=== PATIENT | female | born 2005 | race Two or more races ===

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

== ENCOUNTER 2024-09-19 19:01 | Outpatient (CLI) | payer MEDICAID, SELFPAY ==
[2024-09-19 19:39] LABS: Coronavirus 19, PCR Not Detected (NotDetected); Human Rhinovirus Not Detected (NotDetected); Influenza A, PCR Not Detected (NotDetected); Influenza B, PCR Not Detected (NotDetected); Respiratory Syncytial Virus Not Detected (NotDetected)
== END 2024-09-19 23:59 | disposition home or self-care (01) ==
LOC: LAB.DROPOF 19:06
PROVIDERS: PCP Nurse Practitioner Family; Visit Provider Nurse Practitioner Family
DX: J02.9 Acute pharyngitis, unspecified (principal)
CPT/HCPCS: 87631

== ENCOUNTER 2024-10-01 13:36 | Outpatient (CLI) | payer MEDICAID, SELFPAY ==
[2024-10-01 18:05] LABS: Coronavirus 19, PCR Not Detected (NotDetected); Human Rhinovirus Not Detected (NotDetected); Influenza A, PCR Not Detected (NotDetected); Influenza B, PCR Not Detected (NotDetected); Respiratory Syncytial Virus Not Detected (NotDetected)
== END 2024-10-01 23:59 | disposition home or self-care (01) ==
LOC: LAB.DROPOF 10-02 12:59
PROVIDERS: PCP Nurse Practitioner; Visit Provider Nurse Practitioner
DX: J06.9 Acute upper respiratory infection, unspecified (principal)
CPT/HCPCS: 87631

== ENCOUNTER 2024-10-09 08:52 | Emergency (ER) | payer MEDICAID, SELFPAY ==
[2024-10-09 08:53] VITALS: BP 124/78; PULSE 68; RESP 17; TEMP 36.9; O2SAT 99; BMI 21.9
--- NOTE | 2024-10-09 08:56 | PC.NURSE ---
Cool, wet wash cloth placed to pt's burn area. Pain level decreased to 4/10.
[2024-10-09 09:01] VITALS: PULSE 81; O2SAT 98
--- NOTE | 2024-10-09 09:15 | PC.NURSE ---
Dr. Wheeler at bedside and placing dressing to pt's arm. Given dressing and skin care instructions. Pt provided with extra dressing supplies.
--- NOTE | 2024-10-09 09:17 | ED_ITS ---
Discharge Plan Disposition Patient Disposition: Home, Self-Care Condition: Good Prescriptions Prescriptions: No Action fluoxetine [Prozac] 20 mg capsule 20 mg PO DAILY Qty: 90 3RF albuterol sulfate 90 mcg/actuation HFA aerosol inhaler 2 puff inhalation Q4-6H PRN (Reason: shortness of breath or wheezing) Qty: 8.5 0RF ondansetron 4 mg tablet,disintegrating 4 mg PO Q8H PRN (Reason: nausea and vomiting) Qty: 30 0RF meloxicam 15 mg tablet 15 mg PO DAILY Qty: 90 3RF omeprazole 20 mg capsule,delayed release(DR/EC) 20 mg PO DAILY Qty: 90 3RF Referrals Follow up/Referrals: En Phillip MD [Primary Care Provider] - See instructions Activity Restrictions/Add. Instructions Additional Instructions/Restrictions: Remove your bandage after 24 hours and wash the area gently with soap and water, do not scrub the area or pop the small remaining blister. Cover the wound with Aquaphor or Vaseline or Neosporin and replace a bandage to keep it covered. When he returned to work, keep the wrist clean and dry by wearing a glove or an other barrier. Treat pain with Tylenol and ibuprofen. To decrease scarring, once the wound heals, keep sunscreen on the area. Please follow up with your primary care provider in 2-3 days. Please return to ED if your symptoms worsen, change in location, change in severity, new symptoms develop or if you become concerned for your health. Clinical Impressions Clinical Impression: Burn Stand Alone Forms Stand Alone Forms: Work/School Release Instructions Patient Instructions: Caring for Minor Villalobos Print Language Print Language: Uzbek Discharge ED Provider: Nery Wheeler General Adult HPI General Chief complaint: Skin/Abscess/Foreign Body Stated complaint: burnt on L wrist Time Seen by Provider: 10/09/24 08:55 Mode of Arrival: Family Vehicle Source of Information: Patient, Parent(s) and Medical Record Limitations: No Limitations Description of Symptoms (Recalled from ER Triage Doc. by RN): Pt presents to ER with concerns for burn to left distal wrist from hot gravy while at work at [employer]. This occurred at 0750. There is redness surrounding a large drained blister approx 2 x2 . Reports the pain is 7/10 on CHAMBER MAGISTRATE. 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 History of Present Illness HPI narrative: Patient is a 19-year-old female presenting with a burn. Patient was working at [employer] this morning when she got a small amount of hot gravy on her left wrist. Patient noted she washed the gravy off immediately. 2 blisters formed and one opened which is why she came to the emergency department for evaluation. Patient has no known medical problems. Patient not taking any medications. Related Data Previous Rx's ?Medication ?Instructions ?Recorded meloxicam 15 mg tablet 15 mg PO DAILY #90 tabs 01/12/24 omeprazole 20 mg capsule,delayed 20 mg PO DAILY #90 caps 01/12/24 release fluoxetine 20 mg capsule (Prozac) 20 mg PO DAILY #90 caps 09/23/24 albuterol sulfate 90 mcg/actuation 2 puff inhalation Q4-6H PRN 10/01/24 aerosol inhaler shortness of breath or wheezing #8.5 grams ondansetron 4 mg disintegrating 4 mg PO Q8H PRN nausea and 10/01/24 tablet vomiting #30 tabs Allergies Allergy/AdvReac Type Severity Reaction Status Date / Time No Known Allergies Allergy Verified 10/09/24 09:37 [facility] Disclaimer: The information contained in this section may have been updated after the patient was seen, as this information can be updated by other users. Medical History (Updated 10/09/24 @ 09:19 by Nery Wheeler MD) TMJ (temporomandibular joint disorder) GERD (gastroesophageal reflux disease) Oropharyngeal candidiasis Aphthous ulcer of mouth Surgical History (Updated 10/09/24 @ 09:17 by Anila Wei RN) Hx of cholecystectomy Social History (Updated 10/09/24 @ 09:19 by Anila Wei RN) Smoking Status: Never smoker alcohol intake: never substance use type: denies use current occupational status: employed and student Travel in the last 8 weeks: None household members: family housing: house marital status: single well-balanced diet: daily or most days Have you lived/traveled outside [place] in past 30 days?: No Contact w/someone who lives/traveled outside US past 30 days?: No Exposure to someone with infectious disease in past 14 days?: No Do you have a fever (greater than 100.4 F or 38 C)?: No Have you tested positive for COVID-19: No Exposed to someone with COVID-19 in past 14 days?: No Do you have a sore throat?: No Do you have a cough?: No Do you have any weakness?: No Are you experiencing any nausea/vomitting?: No Do you have any diarrhea?: No Are you experiencing any unusual bleeding?: No Do you have any muscle aches/pain?: No Do you have any abdominal pain?: No Are you experiencing loss of taste or smell?: No Other Medical History Have you received the Flu Vaccine for this season: No Have you received the Pneumonia Vaccine: No ROS Obtained: Yes All systems reviewed & no additional complaints except as documented Physical Exam General General appearance: alert and in no apparent distress Eye Eye exam: Present EOMI; Absent scleral icterus Respiratory Respiratory exam: Present normal lung sounds bilaterally Cardiovascular Cardiovascular exam: Present regular rate and normal rhythm Abdominal Exam Abdominal exam: Present soft; Absent distention Extremities Exam Extremities exam: Present full ROM and tenderness (Left wrist); Absent edema Neurological Exam Neurological exam: Present alert and oriented X3 Skin Skin exam: Present warm and dry; Absent intact (Subcentimeter fluid-filled blister to left medial wrist with approximately 2 cm open blister with serous fluid) Medical Decision Making Medical Records Medical records reviewed: Yes I reviewed the patient's medical records. Screening: Per USPSTF and CDC recommendations, given the prevalence of disease in our region, it is our hospital?s policy to screen for HIV and viral Hepatitis for all patients aged 18 and over and those with ongoing risk factors. Star Inquiry Pt receiving controlled substance: No Vital Signs: 10/09/24 08:53 10/09/24 09:01 10/09/24 09:30 Temperature 98.4 F 98.2 F Temperature Source Oral Oral Pulse Rate 81 68 Pulse Rate [Right] 68 Respiratory Rate 17 18 Blood Pressure 117/78 Blood Pressure [Right Arm] 124/78 Blood Pressure Mean [Right Arm] 93 Blood Pressure Source Automatic Cuff Blood Pressure Source [Right Arm] Automatic Cuff Blood Pressure Position Sitting 02 Sat by Pulse Oximetry 99 98 Oxygen Delivery Method Room Air Room Air Medical Decision Narrative: In summary, this is a 19-year-old female presenting with a burn. Based on the appearance of the burn, it appears to be a small circumscribed second-degree burn. Patient complains of significant pain in the area. She has no history of diabetes and does not use tobacco products. Patient has no history of being immunocompromise. Imaging not indicated at this time based on the mechanism of injury. Patient's burn was cleaned with sterile saline and the ruptured blister skin flap was removed with sterile scissors. Wound covered with Xeroform, nonstick gauze and the wrist was wrapped with Kerlix. Patient was given instructions for wound care management as well as return precautions and follow- up. Patient in agreement with this plan. Patient stable for discharge. Nery Wheeler MD PGY-3, Emergency Medicine Critical Care Critical Care Time Critical Care Time: No
--- NOTE | 2024-10-09 09:28 | PC.NURSE ---
Dr. Wheeler completed a worker's comp form and this was given to pt to provide to work. Copy in pt's chart.
[2024-10-09 09:30] VITALS: BP 117/78; PULSE 68; RESP 18; TEMP 36.8; O2SAT 98
--- NOTE | 2024-10-09 09:30 | PC.NURSE ---
Wound was dressed by Summer MEDRANO. Work note provided.
== END 2024-10-09 09:31 | disposition home or self-care (01) ==
PROVIDERS: Emergency Provider Student in an Organized Health Care Education/Training Program; PCP Family Medicine
DX: T23.272A Burn of second degree of left wrist, initial encounter (principal); M25.532 Pain in left wrist; X12.XXXA Contact with other hot fluids, initial encounter; Y93.89 Activity, other specified; Y92.511 Restaurant or cafe as the place of occurrence of the external cause
CPT/HCPCS: 99282

== ENCOUNTER 2024-12-21 11:40 | Emergency (ER) | payer MEDICAID, SELFPAY ==
[2024-12-21 11:45] VITALS: BP 114/48; PULSE 95; RESP 16; TEMP 37.3; O2SAT 98; BMI 20.5
[2024-12-21 11:52] LABS: Coronavirus 19, PCR Not Detected (NotDetected); Influenza A, PCR Not Detected (NotDetected); Influenza B, PCR Not Detected (NotDetected)
[2024-12-21] MEDS: ACETAMINOPHEN 500MG TAB 1000 MG PO (12:07)
[2024-12-21] MEDS: ONDANSETRON 4MG ODT 4 MG SL (12:07)
[2024-12-21] MEDS: FAMOTIDINE 20MG TABLET 20 MG PO (12:07)
--- NOTE | 2024-12-21 12:12 | ED_ITS ---
Discharge Plan Disposition Patient Disposition: Home, Self-Care Prescriptions Prescriptions: New ondansetron 4 mg tablet,disintegrating 4 mg PO Q8H PRN (Reason: nausea and vomiting) 4 Days Qty: 12 0RF famotidine [Pepcid] 20 mg tablet 20 mg PO BID Qty: 14 0RF No Action fluoxetine [Prozac] 20 mg capsule 20 mg PO DAILY Qty: 90 3RF Referrals Follow up/Referrals: En Phillip MD [Primary Care Provider] - See instructions Activity Restrictions/Add. Instructions Additional Instructions/Restrictions: You were evaluated in the emergency department today. At this time, we feel you likely have a viral syndrome as a cause of your symptoms. 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 Please also take Tylenol and ibuprofen every 4-6 hours as needed for pain, body aches, fever. Orally hydrate eat a bland diet till your symptoms have resolved. Follow-up with your primary care provider for reassessment. Return to the emergency department for new or worsening symptoms. Clinical Impressions Clinical Impression: Nausea & vomiting, Acute viral syndrome Stand Alone Forms Stand Alone Forms: Work/School Release Instructions Patient Instructions: DI for Diarrhea and Traveler's Diarrhea -- Adult, DI for Viral Syndrome, DI for Nausea -- Adult Print Language Print Language: Citizen Of [place] Discharge ED Provider: Iliana Corea General Adult HPI General Chief complaint: Nausea/Vomiting/Diarrhea Stated complaint: Vomitting, Body Aches Time Seen by Provider: 12/21/24 11:50 Mode of Arrival: Ambulatory Source of Information: Patient Description of Symptoms (Recalled from ER Triage Doc. by RN): PT REPORTS NAUSEA, BODYACHES AND VOMITING THAT STARTED ON MONDAY History of Present Illness HPI narrative: This patient is a 19-year-old female who denies significant past medical history presenting to the emergency department for evaluation of concern for nausea, vomiting, body aches, sore throat, and generally feeling unwell since . She denies any cough, congestion, abdominal pain, changes in bowel movements, urinary symptoms, or other concerns. She does not think she could be . Related Data Previous Rx's ?Medication ?Instructions ?Recorded fluoxetine 20 mg capsule (Prozac) 20 mg PO DAILY #90 caps 09/23/24 famotidine 20 mg tablet (Pepcid) 20 mg PO BID #14 tabs 12/21/24 ondansetron 4 mg disintegrating 4 mg PO Q8H PRN nausea and 12/21/24 tablet vomiting 4 days #12 tabs Allergies Allergy/AdvReac Type Severity Reaction Status Date / Time No Known Allergies Allergy Verified 10/09/24 09:37 [facility] Disclaimer: The information contained in this section may have been updated after the patient was seen, as this information can be updated by other users. Medical History TMJ (temporomandibular joint disorder) GERD (gastroesophageal reflux disease) Oropharyngeal candidiasis Aphthous ulcer of mouth Surgical History Hx of cholecystectomy Social History Smoking Status: Never smoker alcohol intake: never substance use type: denies use current occupational status: employed and student Travel in the last 8 weeks: None household members: family housing: house marital status: single well-balanced diet: daily or most days Have you lived/traveled outside US in past 30 days?: No Contact w/someone who lives/traveled outside US past 30 days?: No Exposure to someone with infectious disease in past 14 days?: No Do you have a fever (greater than 100.4 F or 38 C)?: No Have you tested positive for COVID-19: No Exposed to someone with COVID-19 in past 14 days?: No Do you have a sore throat?: No Do you have a cough?: No Do you have any weakness?: Yes Do you have any diarrhea?: No Are you experiencing any unusual bleeding?: No Do you have any muscle aches/pain?: Yes Do you have any abdominal pain?: No Are you experiencing loss of taste or smell?: No Other Medical History Have you received the Flu Vaccine for this season: No Have you received the Pneumonia Vaccine: No ROS Obtained: Yes All systems reviewed & no additional complaints except as documented Physical Exam General General appearance: alert and in no apparent distress Head Head exam: atraumatic and normocephalic Eye Eye exam: Present normal appearance, PERRL and EOMI ENT ENT exam: Present normal exam, normal oropharynx, mucous membranes moist and normal external ear exam Neck Neck exam: Present normal inspection, full ROM and trachea midline; Absent tenderness Chest Chest inspection: Present normal inspection and symmetric chest wall rise; Absent tenderness Respiratory Respiratory exam: Present normal lung sounds bilaterally; Absent respiratory distress, wheezes, stridor or accessory muscle use Cardiovascular Cardiovascular exam: Present normal rhythm and tachycardia Abdominal Exam Abdominal exam: Present soft; Absent distention, tenderness or guarding Extremities Exam Extremities exam: Present normal inspection, full ROM and normal capillary refill; Absent tenderness or edema Back Exam Back exam: Present normal inspection and full ROM; Absent tenderness Neurological Exam Neurological exam: Present alert, oriented X3, CN II-XII intact and normal gait; Absent motor sensory deficit Psychiatric Psychiatric exam: Present normal affect and normal mood Skin Skin exam: Present warm and dry Medical Decision Making Medical Records Medical records reviewed: Yes I reviewed the patient's medical records. Screening: Per USPSTF and CDC recommendations, given the prevalence of disease in our region, it is our hospital?s policy to screen for HIV and viral Hepatitis for all patients aged 18 and over and those with ongoing risk factors. Star Inquiry Pt receiving controlled substance: No Vital Signs: 12/21/24 11:45 12/21/24 12:39 Temperature 99.1 F Temperature Source Oral Pulse Rate 95 H Pulse Rate [Radial] 95 H Respiratory Rate 16 Blood Pressure 100/57 L Blood Pressure [Right Arm] 114/48 L Blood Pressure Mean [Right Arm] 70 Blood Pressure Source [Right Arm] Automatic Cuff Blood Pressure Position [Right Arm] Sitting 02 Sat by Pulse Oximetry 98 97 Oxygen Delivery Method Room Air Room Air Lab Data Lab results reviewed: Yes I reviewed the patient's lab results. Lab Results 12/21/24 11:46: SARS-CoV-2 (PCR) Not detected, Influenza A Untype (PCR) Not detected, Influenza Type B (PCR) Not detected 12/21/24 12:15: Urine Color Yellow, Urine Appearance Clear, Urine pH 6.0, Ur Specific [place] 1.038 H, Urine Protein 1+ A, Urine Glucose (UA) Negative, Urine Ketones 3+, Urine Blood 1+ A, Urine Nitrate Negative, Urine Bilirubin 1+ A, Urine Urobilinogen 1.0, Ur Leukocyte Esterase Negative, Urine RBC None, Urine WBC Occasional, Ur Squamous Epith Cells 3-5, Urine Bacteria Trace, Urine Mucus Trace, Urine HCG, Qual Negative, Group A Strep Rapid Negative Orders (Tests/Meds): ED MEDICATIONS Discontinued Medications Generic Name Dose Route Start Last Admin Trade Name [place] PRN Reason Stop Dose Admin Acetaminophen 1,000 mg 12/21/24 11:50 12/21/24 12:07 Acetaminophen 500mg Tab PO 12/21/24 11:51 1,000 mg ONCE ONE Administration Famotidine 20 mg 12/21/24 11:50 12/21/24 12:07 Famotidine 20mg Tablet PO 12/21/24 11:51 20 mg ONCE ONE Administration Ibuprofen 800 mg 12/21/24 12:52 Ibuprofen 400 Mg Tablet PO 12/21/24 12:53 ONCE ONE Ondansetron HCl 4 mg 12/21/24 11:50 12/21/24 12:07 Ondansetron 4mg Odt SL 12/21/24 11:51 4 mg ONCE ONE Administration ORDERS Category Date Time Status HIV Combo Stat Lab 12/21/24 11:55 Ordered Hepatitis C Ab Qual. W/ RFX Stat Lab 12/21/24 11:55 Ordered Rapid PCR Covid and Flu A/B Stat Lab 12/21/24 11:46 Completed Strep Scrn Group A (Rapid) Stat Lab 12/21/24 12:15 Completed UA [Urinalysis and Microscopic] Stat Lab 12/21/24 12:15 Completed Urine , HCG Qual. Stat Lab 12/21/24 12:15 Completed Strep Screen Confirmation Stat Micro 12/21/24 12:15 Received Medical Decision Narrative: In summary, this patient is a 19-year-old female presenting to the Emergency Department for evaluation of sore throat, body aches, generally feeling unwell, nausea, and vomiting. Differential diagnoses considered include but are not limited to viral syndrome, gastroenteritis, colitis, strep pharyngitis. Ruling out the most morbid conditions drove assessment. On exam, the patient is well-appearing. She is mildly tachycardic in the setting of nausea and vomiting but cardiopulmonary and abdominal exams are benign. No adventitious lung sounds, no localizable abdominal tenderness to suggest acute surgical intra-abdominal pathology. Based on constellation of symptoms, I feel patient likely has a viral syndrome. Workup included strep swab, COVID swab, urinalysis, urine test. 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 She is given oral Zofran, Pepcid, and Tylenol for symptomatic improvement. On reassessment, the patient is resting comfortably and feeling a lot better. She is able to tolerate oral intake without issue, and abdominal exam remains benign. She is negative for strep, COVID, flu. test is negative. Urinalysis is not overtly concerning for infection. Ultimately at this time, I feel she is appropriate for discharge home with instructions for supportive management of likely viral syndrome. She is given prescriptions for Zofran and Pepcid as well as strict return precautions. She is discharged after all questions were answered Critical Care Critical Care Time Critical Care Time: No
[2024-12-21 12:30] LABS: Microscopic, Urine URINE MICROSCOPIC (MICROSCOPIC)
[2024-12-21 12:32] LABS: Appearance,Urine CLEAR (Clear); Blood, Urine 1+ (Negative); Color,Urine YELLOW (Yellow); Glucose,Urine (UA) Negative (Negative); Ketones,Urine 3+ (Negative); Leukocyte Esterase,Urine Negative (Negative); Nitrate,Urine Negative (Negative); Protein,Urine 1+ (Negative)
[2024-12-21 12:34] LABS: Urine Pregnancy, HCG Qual. Negative (Negative)
[2024-12-21 12:38] LABS: Bacteria,Urine Trace /lpf; Mucus,Urine Trace /lpf; Specific Gravity, Urine 1.038 (1.005-1.030); WBC,Urine Occasional #/hpf (0-3)
[2024-12-21 12:39] VITALS: BP 100/57; PULSE 95; O2SAT 97
[2024-12-21 12:43] LABS: Bilirubin,Urine 1+ (Negative)
[2024-12-21 12:49] LABS: Strep Scrn Group A (Rapid) Negative (Negative)
[2024-12-21] MEDS: IBUPROFEN 400 MG TABLET 800 MG PO (13:43)
[2024-12-21 13:50] VITALS: BP 110/70; PULSE 86; RESP 16; TEMP 36.8; O2SAT 98
== END 2024-12-21 13:50 | disposition home or self-care (01) ==
PROVIDERS: Emergency Provider Emergency Medicine; PCP Family Medicine
DX: R11.2 Nausea with vomiting, unspecified (principal); B34.9 Viral infection, unspecified
CPT/HCPCS: 99283; 81001; 81025; 87430; 87636; Q0162

== ENCOUNTER 2024-12-22 00:39 | Emergency (ER) | payer MEDICAID, SELFPAY ==
--- NOTE | 2024-12-22 00:43 | ED_ITS ---
Discharge Plan Disposition Patient Disposition: Home, Self-Care Prescriptions Prescriptions: No Action fluoxetine [Prozac] 20 mg capsule 20 mg PO DAILY Qty: 90 3RF ondansetron 4 mg tablet,disintegrating 4 mg PO Q8H PRN (Reason: nausea and vomiting) 4 Days Qty: 12 0RF famotidine [Pepcid] 20 mg tablet 20 mg PO BID Qty: 14 0RF Referrals Follow up/Referrals: nE Phillip MD [Primary Care Provider] - See instructions Activity Restrictions/Add. Instructions Additional Instructions/Restrictions: Please follow-up with your primary care provider. Please return to the emergency department if you develop any new or worsening symptoms or become concerned for your health. Clinical Impressions Clinical Impression: Akathisia Print Language Print Language: [place] Discharge ED Provider: Js Noel General Adult HPI General Chief complaint: Weakness Stated complaint: weakness, vomiting Time Seen by Provider: 12/22/24 00:43 History of Present Illness HPI narrative: 19-year-old female with history of cholecystectomy and GERD presents for nausea and vomiting and twitching. Was seen in our ER earlier today was discharged with Phenergan. She took 50 mg of Phenergan and then started shaking and twitching. She has taken Phenergan before and has never had this issue. She reports she is continuing to vomit as well. Related Data Previous Rx's ?Medication ?Instructions ?Recorded fluoxetine 20 mg capsule (Prozac) 20 mg PO DAILY #90 caps 09/23/24 famotidine 20 mg tablet (Pepcid) 20 mg PO BID #14 tabs 12/21/24 ondansetron 4 mg disintegrating 4 mg PO Q8H PRN nausea and 12/21/24 tablet vomiting 4 days #12 tabs Allergies Allergy/AdvReac Type Severity Reaction Status Date / Time No Known Allergies Allergy Verified 10/09/24 09:37 [facility] Disclaimer: The information contained in this section may have been updated after the patient was seen, as this information can be updated by other users. Medical History TMJ (temporomandibular joint disorder) GERD (gastroesophageal reflux disease) Oropharyngeal candidiasis Aphthous ulcer of mouth Surgical History Hx of cholecystectomy Social History Smoking Status: Never smoker alcohol intake: never substance use type: denies use current occupational status: employed and student Travel in the last 8 weeks: None household members: family housing: house marital status: single well-balanced diet: daily or most days Have you lived/traveled outside US in past 30 days?: No Contact w/someone who lives/traveled outside US past 30 days?: No Exposure to someone with infectious disease in past 14 days?: No Do you have a fever (greater than 100.4 F or 38 C)?: No Have you tested positive for COVID-19: No Exposed to someone with COVID-19 in past 14 days?: No Do you have a sore throat?: No Do you have a cough?: No Do you have any weakness?: Yes Do you have any diarrhea?: No Are you experiencing any unusual bleeding?: No Do you have any muscle aches/pain?: No Do you have any abdominal pain?: No Are you experiencing loss of taste or smell?: No Other Medical History Have you received the Flu Vaccine for this season: No Have you received the Pneumonia Vaccine: No ROS Obtained: Yes All systems reviewed & no additional complaints except as documented Physical Exam General General appearance: alert and anxious Head Head exam: atraumatic and normocephalic Eye Eye exam: Present normal appearance, PERRL and EOMI ENT ENT exam: Present normal oropharynx and normal external ear exam Neck Neck exam: Present normal inspection and full ROM Chest Chest inspection: Present normal inspection and symmetric chest wall rise; Absent tenderness Respiratory Respiratory exam: Present normal lung sounds bilaterally; Absent respiratory distress Cardiovascular Cardiovascular exam: Present regular rate and normal rhythm Abdominal Exam Abdominal exam: Present soft; Absent distention, tenderness or guarding Extremities Exam Extremities exam: Present normal inspection; Absent edema or joint swelling Back Exam Back exam: Present normal inspection; Absent tenderness Neurological Exam Neurological exam: Present alert and oriented X3; Absent motor sensory deficit Psychiatric Psychiatric exam: Present normal affect, normal mood and other (Occasional twitching of the limbs) Skin Skin exam: Present warm, dry and normal color Lymphatic Lymphatic Findings: no adenopathy Medical Decision Making Medical Records Medical records reviewed: Yes I reviewed the patient's medical records. Screening: Per USPSTF and CDC recommendations, given the prevalence of disease in our region, it is our hospital?s policy to screen for HIV and viral Hepatitis for all patients aged 18 and over and those with ongoing risk factors. Star Inquiry Pt receiving controlled substance: No Star was queried for this patient: No Vital Signs: 12/22/24 00:51 12/22/24 03:09 Temperature 98.9 F 98.9 F Temperature Source Oral Pulse Rate 80 Pulse Rate [Radial] 91 H Respiratory Rate 18 18 Blood Pressure 120/74 Blood Pressure [Right Arm] 108/85 L Blood Pressure Mean [Right Arm] 92 Blood Pressure Position [Right Arm] Sitting 02 Sat by Pulse Oximetry 100 Oxygen Delivery Method Room Air Room Air Lab Data Lab results reviewed: Yes I reviewed the patient's lab results. Lab Results 12/22/24 00:55: WBC 15.0 H, RBC 4.20, Hgb 11.8 L, Hct 35.6 L, MCV 84.8, MCH 28.1, MCHC 33.1, RDW 13.4, Plt Count 267, MPV 9.9, Neut % (Auto) 75.6, Lymph % (Auto) 13.4, [place] % (Auto) 9.9 H, Eos % (Auto) 0.5, Baso % (Auto) 0.2, Neut # (Auto) 11.3 H, Lymph # (Auto) 2.0, [place] # (Auto) 1.5 H, Eos # (Auto) 0.1, Baso # (Auto) 0.0, Total Counted 100, Neutrophils % (Manual) 74, Lymphocytes % (Manual) 15, Monocytes % (Manual) 11 H, Platelet Estimate Normal, RBC Morphology Normal, Sodium 137, Potassium 3.1 L, Chloride 98, Carbon Dioxide 27, Anion Gap 15.1 H, B UN 6 L, Creatinine 0.60, Estimated Creat Clear 129, Estimated GFR 127, Est GFR ( Amer) 154, Glucose 128 H, Calcium 8.7, Magnesium 2.1, Total Bilirubin 0.6, AST 67 H, ALT 50, Alkaline Phosphatase 92, Total Protein 7.9, Albumin 4.2, Globulin 3.7 H, Albumin/Globulin Ratio 1.1, Lipase 47 12/22/24 00:55 12/22/24 00:55 Orders (Tests/Meds): ED MEDICATIONS Discontinued Medications Generic Name Dose Route Start Last Admin Trade Name Freq PRN Reason Stop Dose Admin Benztropine Mesylate 2 mg 12/22/24 00:52 12/22/24 01:10 Benztropine 2mg/2ml Vial IV 12/22/24 00:53 2 mg ONCE ONE Administration Lactated Ringer's 1,000 mls @ 999 mls/hr 12/22/24 01:30 12/22/24 01:44 Lactated Ringer's 1000 Ml Bag IV 12/22/24 02:30 999 mls/hr .Q1H1M LLUVIA Administration Potassium Chloride 40 meq 12/22/24 01:57 12/22/24 02:10 Potassium Chloride 20meq Tab PO 12/22/24 01:58 40 meq ONCE ONE Administration ORDERS Category Date Time Status CBC w/Auto Diff [Complete Blood Count Auto Diff] Stat Lab 12/22/24 00:55 Completed CMP [Comprehensive Metabolic Panel] Stat Lab 12/22/24 00:55 Completed Lipase Stat Lab 12/22/24 00:55 Completed MAG [Magnesium] Stat Lab 12/22/24 00:55 Completed Medical Decision Narrative: 39-year-old female with history of cholecystectomy, GERD presents for twitching after taking 50 mg of Phenergan. History was obtained via interactive discussion with patient, family, chart review. On arrival, patient is [afebrile, hemodynamically stable, satting appropriately, alert, oriented x4, GCS 15], moving all extremities spontaneously. Full physical exam performed and significant for occasional twitching of the limbs noted, dry mucous membranes. Differential includes but is not limited to dehydration, electrolyte derangement, akathisia/extraparamydal side effects from Phenergan. Patient was given 1 L IV fluid bolus for symptomatic management and correction of underlying abnormalities. Workup initiated including CBC CMP lipase magnesium. On re-evaluation, patient [remains afebrile, HD stable.] Now sleeping comfortably Laboratory workup independently interpreted by me and significant for mild hypokalemia with potassium 3.1, repleted orally.. CT was considered, but deemed unnecessary due to prior cholecystectomy, no focal right lower quadrant pain appendicitis, no concern for obstruction, etc. Given patient history, exam and workup, patient's presentation most likely represents extrapyramidal side effect of the Phenergan as well as mild hypokalemia from nausea and vomiting. No evidence of pancreatitis or other acute pathology. Patient discharged in stable condition with return precautions. Procedures Risk/Benefits of Procedure(s) Were Explained: Yes Critical Care Critical Care Time Critical Care Time: No
[2024-12-22 00:51] VITALS: BP 108/85; PULSE 91; RESP 18; TEMP 37.2; O2SAT 100; BMI 20.5
[2024-12-22] MEDS: BENZTROPINE 2MG/2ML VIAL 2 MG IV (01:10)
--- NOTE | 2024-12-22 01:18 | PC.NURSE ---
pt medicated per MAR and given warm blankets at this time
[2024-12-22] MEDS: LACTATED RINGERS 1000ML 1,000 ML 999 ML IV (01:44)
[2024-12-22 01:48] LABS: Basophils % 0.2 % (0.1-2.0); Eosinophils # 0.1 K/mm3 (0.0-0.4); Eosinophils % 0.5 % (0.1-12.0); Hematocrit 35.6 % (37.0-47.0); Hemoglobin 11.8 g/dL (12.2-16.2); Lymphocytes % 13.4 % (10-50); Mean Corpuscular HGB Conc 33.1 g/dL (31.8-35.4); Mean Corpuscular Hemoglobin 28.1 pg (27.0-31.2); Mean Corpuscular Volume 84.8 fl (81-99); Mean Platelet Volume 9.9 fl (7.4-10.4); Monocytes # 1.5 K/mm3 (0.1-1.0); Monocytes % 9.9 % (1.7-9.3); Neutrophils # 11.3 K/mm3 (1.8-7.8); Neutrophils % 75.6 % (37.0-80.0); Nucleated Red Blood Cells # 0 10^3/uL; Nucleated Red Blood Cells % 0 %; Platelet Count 267 K/mm3 (142-424); Red Cell Distribution Width 13.4 % (11.5-17.5); Red Cell Distribution Width-SD 41.7 fL
[2024-12-22 01:50] LABS: MANUAL DIFFERENTIAL MANUAL DIFFERENTIAL (MANUAL DIFF)
[2024-12-22 01:51] LABS: Alanine Aminotransferase 50 U/L (12-78); Albumin Level 4.2 g/dl (3.5-5.0); Anion Gap 15.1 mEq/L (5-15); Aspartate Amino Transferase 67 U/L (14-36); Bilirubin,Total 0.6 mg/dl (0.2-1.3); Blood Urea Nitrogen 6 mg/dl (7-17); Calcium 8.7 mg/dl (8.4-10.2); Carbon Dioxide 27 mmol/L (22.0-30.0); Chloride 98 mmol/L (98-107); Creatinine Clearance Estimated 129 mL/min (50-200); Estimated Glomerular Filt Rate 127 ml/min (>60); GFR (African American) 154 ML/MIN (>60); Glucose 128 mg/dl (74-100); Lipase 47 U/L (23-300); Magnesium 2.1 mg/dl (1.6-2.3); Potassium 3.1 mmoL/L (3.5-5.1); Sodium 137 mmol/L (136-145); Total Protein,Serum 7.9 g/dl (6.3-8.2)
[2024-12-22 01:52] LABS: Albumin/Globulin Ratio 1.1 (1.1-1.8); Alkaline Phosphatase 92 U/L (38-126); Globulin 3.7 g/dL (1.3-3.2)
[2024-12-22] MEDS: POTASSIUM CHLORIDE 20MEQ TAB 40 MEQ PO (02:10)
[2024-12-22 02:22] LABS: Lymphocytes % 15 % (10-50); Monocytes % 11 % (2-9); Neutrophils % 74 % (42-76); Platelet Estimate Normal; RBC Morphology Normal; Total Cells Counted 100
[2024-12-22 03:09] VITALS: BP 120/74; PULSE 80; RESP 18; TEMP 37.2; O2SAT 99
== END 2024-12-22 03:10 | disposition home or self-care (01) ==
LOC: ER 00:46
PROVIDERS: Emergency Provider Emergency Medicine; PCP Family Medicine
DX: G25.71 Drug induced akathisia (principal); R11.2 Nausea with vomiting, unspecified; E87.6 Hypokalemia
CPT/HCPCS: 80053; 83690; 83735; 85007; 85025; 85027; 96361; 96374; 99284; J7120

== ENCOUNTER 2024-12-26 15:45 | Outpatient (CLI) | payer MEDICAID, SELFPAY ==
[2024-12-26 17:54] LABS: Coronavirus 19, PCR Not Detected (NotDetected); Human Rhinovirus Not Detected (NotDetected); Influenza A, PCR Not Detected (NotDetected); Influenza B, PCR Not Detected (NotDetected); Respiratory Syncytial Virus Not Detected (NotDetected)
[2024-12-26 18:06] LABS: Monoscreen (Rapid) Negative (Negative)
[2024-12-26 18:22] LABS: Basophils % 0.3 % (0.1-2.0); Eosinophils # 0.3 K/mm3 (0.0-0.4); Eosinophils % 2.6 % (0.1-12.0); Hematocrit 35.8 % (37.0-47.0); Hemoglobin 11.3 g/dL (12.2-16.2); Lymphocytes # 2.5 K/mm3 (0.7-4.5); Lymphocytes % 25.8 % (10-50); Mean Corpuscular HGB Conc 31.6 g/dL (31.8-35.4); Mean Corpuscular Hemoglobin 27.3 pg (27.0-31.2); Mean Corpuscular Volume 86.5 fl (81-99); Mean Platelet Volume 9.7 fl (7.4-10.4); Monocytes % 9.8 % (1.7-9.3); Neutrophils # 5.9 K/mm3 (1.8-7.8); Neutrophils % 60.9 % (37.0-80.0); Nucleated Red Blood Cells # 0 10^3/uL; Nucleated Red Blood Cells % 0 %; Platelet Count 422 K/mm3 (142-424); Red Blood Count 4.14 M/mm3 (4.20-5.40); Red Cell Distribution Width 13.1 % (11.5-17.5); White Blood Count 9.7 K/mm3 (4.5-13.0)
[2024-12-26 19:46] LABS: Albumin Level 3.8 g/dl (3.5-5.0); Chloride 100 mmol/L (98-107); Potassium 3.7 mmoL/L (3.5-5.1); Sodium 139 mmol/L (136-145)
[2024-12-26 19:49] LABS: Alanine Aminotransferase 30 U/L (12-78); Albumin/Globulin Ratio 1.2 (1.1-1.8); Alkaline Phosphatase 107 U/L (38-126); Anion Gap 12.7 mEq/L (5-15); Aspartate Amino Transferase 21 U/L (14-36); Bilirubin,Total 0.2 mg/dl (0.2-1.3); Blood Urea Nitrogen 3 mg/dl (7-17); Calcium 8.8 mg/dl (8.4-10.2); Carbon Dioxide 30 mmol/L (22.0-30.0); Estimated Glomerular Filt Rate 127 ml/min (>60); GFR (African American) 154 ML/MIN (>60); Globulin 3.2 g/dL (1.3-3.2); Glucose 96 mg/dl (74-100)
== END 2024-12-26 23:59 | disposition home or self-care (01) ==
LOC: LAB.DROPOF 12-27 12:22
PROVIDERS: PCP Nurse Practitioner; Visit Provider Nurse Practitioner
DX: E87.6 Hypokalemia (principal); J06.9 Acute upper respiratory infection, unspecified
CPT/HCPCS: 80053; 85025; 86318; 87631

== ENCOUNTER 2025-02-14 08:51 | Outpatient (CLI) | payer MEDICAID, SELFPAY | END 2025-02-14 23:59 | disposition home or self-care (01) | LOC: LAB.DROPOF 02-17 08:51 | PROVIDERS: PCP Nurse Practitioner Family; Visit Provider Nurse Practitioner Family | DX: R10.9 Unspecified abdominal pain (principal) | CPT/HCPCS: 87086 ==

== ENCOUNTER 2025-03-24 11:10 | Outpatient (CLI) | payer MEDICAID, SELFPAY ==
[2025-03-24 14:09] LABS: Microscopic, Urine URINE MICROSCOPIC (MICROSCOPIC)
[2025-03-24 14:13] LABS: Bilirubin,Urine Negative (Negative); Color,Urine ORANGE (Yellow); Glucose,Urine (UA) Negative (Negative); Ketones,Urine Negative (Negative); Leukocyte Esterase,Urine Negative (Negative); PH,Urine 7.0 (5.0-8.5); Protein,Urine TRACE (Negative); Specific Gravity, Urine 1.025 (1.005-1.030); Urobilinogen,Urine 0.2 EU/dl (0.2)
[2025-03-24 14:28] LABS: Bacteria,Urine Trace /lpf; RBC,Urine TNTC #/hpf (0-3); Squamous Epithelial Cell,Urine Occasional #/hpf (0-5); WBC,Urine Occasional #/hpf (0-3)
[2025-03-24 14:41] LABS: Hematocrit 35.1 % (37.0-47.0); Hemoglobin 11.1 g/dL (12.2-16.2); Immature Granulocytes % 0.1 %; Mean Corpuscular HGB Conc 31.6 g/dL (31.8-35.4); Mean Corpuscular Hemoglobin 26.8 pg (27.0-31.2); Mean Corpuscular Volume 84.8 fl (81-99); Nucleated Red Blood Cells % 0 %; Platelet Count 324 K/mm3 (142-424); Red Blood Count 4.14 M/mm3 (4.20-5.40); Red Cell Distribution Width-SD 42.8 fL; White Blood Count 7.3 K/mm3 (4.5-13.0)
[2025-03-24 15:20] LABS: Alanine Aminotransferase 10 U/L (12-78); Albumin Level 4.1 g/dl (3.5-5.0); Albumin/Globulin Ratio 1.6 (1.1-1.8); Alkaline Phosphatase 73 U/L (38-126); Anion Gap 14.9 mEq/L (5-15); Aspartate Amino Transferase 20 U/L (14-36); Bilirubin,Total 0.5 mg/dl (0.2-1.3); Blood Urea Nitrogen 8 mg/dl (7-17); Calcium 8.9 mg/dl (8.4-10.2); Carbon Dioxide 25 mmol/L (22.0-30.0); Chloride 101 mmol/L (98-107); Creatinine,Serum 0.40 mg/dl (0.52-1.04); Estimated Glomerular Filt Rate 203 ml/min (>60); GFR (African American) 246 ML/MIN (>60); Globulin 2.6 g/dL (1.3-3.2); Glucose 86 mg/dl (74-100); Potassium 3.9 mmoL/L (3.5-5.1); Sodium 137 mmol/L (136-145); Total Protein,Serum 6.7 g/dl (6.3-8.2)
== END 2025-03-24 23:59 | disposition home or self-care (01) ==
LOC: LAB.DROPOF 03-25 10:36
PROVIDERS: PCP Nurse Practitioner; Visit Provider Nurse Practitioner
DX: R11.0 Nausea (principal); R10.9 Unspecified abdominal pain
CPT/HCPCS: 80053; 81001; 85025

== ENCOUNTER 2025-03-25 10:47 | Emergency (ER) | payer MEDICAID, SELFPAY ==
[2025-03-25 10:59] VITALS: BP 115/77; PULSE 72; RESP 16; TEMP 36.6; O2SAT 100; BMI 21.6
[2025-03-25 10:59] LABS: Microscopic, Urine URINE MICROSCOPIC (MICROSCOPIC)
[2025-03-25 11:04] LABS: Bilirubin,Urine Negative (Negative); Color,Urine YELLOW (Yellow); Glucose,Urine (UA) Negative (Negative); Ketones,Urine Negative (Negative); Leukocyte Esterase,Urine Negative (Negative); PH,Urine 6.0 (5.0-8.5); Protein,Urine Negative (Negative); Specific Gravity, Urine 1.020 (1.005-1.030); Urobilinogen,Urine 0.2 EU/dl (0.2)
[2025-03-25 11:07] LABS: Urine Pregnancy, HCG Qual. Negative (Negative)
[2025-03-25 11:17] LABS: Bacteria,Urine Trace /lpf; Mucus,Urine Trace /lpf; WBC,Urine Occasional #/hpf (0-3)
--- NOTE | 2025-03-25 11:17 | HMH.EDGENADL ---
Discharge Plan Disposition Patient Disposition: Home, Self-Care Condition: Good Prescriptions Prescriptions: No Action fluoxetine [Prozac] 20 mg capsule 20 mg PO DAILY Qty: 90 3RF Daily Probiotic (10 Strains) 4 billion cell capsule 1 cap PO DAILY Qty: 90 3RF ondansetron 4 mg tablet,disintegrating 4 mg PO Q8H PRN (Reason: nausea and vomiting) 4 Days Qty: 12 0RF ascorbic acid (vitamin C) 500 mg tablet 500 mg PO DAILY Qty: 30 0RF Referrals Follow up/Referrals: En Phillip MD [Primary Care Provider, Family Practice] - See instructions Activity Restrictions/Add. Instructions Additional Instructions/Restrictions: Please follow-up with your family doctor and women's health provider, please return to the emergency department any worsening signs or symptoms. Clinical Impressions Clinical Impression: Hot flashes, Fatigue Instructions Patient Instructions: DI for Fatigue Print Language Print Language: Korean Discharge ED Provider: Stacey Servin General Adult HPI General Chief complaint: Weakness Stated complaint: light headed and hot flashes,nausea Time Seen by Provider: 03/25/25 10:50 Mode of Arrival: Ambulatory Source of Information: Patient Description of Symptoms (Recalled from ER Triage Doc. by RN): Pt states starting this past weekend she began having hot flashes, weakness, and nausea. Pt currently denies any pain or recent fever. Pt was seen at PCP and given no answer to why she is feeling bad. History of Present Illness HPI narrative: 19-year-old female presents emergency department with nausea, hot flashes , generalized weakness/fatigue, patient states this has been intermittent for quite some time, worse over the last 2 days, patient saw her outpatient family physician yesterday, had basic laboratory studies, urine, and other test performed, all of which were negative. Denies any fever or chills, chest pain shortness of breath, no vomiting no abdominal pain, no constipation no diarrhea, no urinary symptomatology, no vaginal type symptomatology, no vaginal discharge no vaginal irritation, currently having some vaginal bleeding as patient is on her menstrual cycle, menstrual cycles quite regular, patient denies any alcohol tobacco or drug use, initial triage vitals are unremarkable. Patient has no other real relevant past medical history takes no medications daily at home. Onset (ago): day(s) Related Data Previous Rx's ?Medication ?Instructions ?Recorded fluoxetine 20 mg capsule (Prozac) 20 mg PO DAILY #90 caps 09/23/24 Lactobac 51-Bifidobac 1 cap PO DAILY #90 caps 01/15/25 3-L.lactis-S.thermophilus 4 billion cell capsule (Daily Probiotic (10 Strains)) ondansetron 4 mg disintegrating 4 mg PO Q8H PRN nausea and 02/14/25 tablet vomiting 4 days #12 tabs ascorbic acid (vitamin C) 500 mg 500 mg PO DAILY #30 tabs 02/17/25 tablet Allergies Allergy/AdvReac Type Severity Reaction Status Date / Time No Known Allergies Allergy Verified 03/24/25 10:38 [facility] Disclaimer: The information contained in this section may have been updated after the patient was seen, as this information can be updated by other users. Medical History TMJ (temporomandibular joint disorder) GERD (gastroesophageal reflux disease) Oropharyngeal candidiasis Aphthous ulcer of mouth Surgical History Hx of cholecystectomy Social History Smoking Status: Never smoker alcohol intake: never substance use type: denies use current occupational status: employed and student Travel in the last 8 weeks?: None household members: family housing: house marital status: single well-balanced diet: daily or most days Have you lived/traveled outside US in past 30 days?: No Contact w/someone who lives/traveled outside US past 30 days?: No Exposure to someone with infectious disease in past 14 days?: No Do you have a fever (greater than 100.4 F or 38 C)?: No Have you tested positive for COVID-19?: No Exposed to someone with COVID-19 in past 14 days?: No Do you have a sore throat?: No Do you have a cough?: No Do you have any weakness?: No Do you have any diarrhea?: No Are you experiencing any unusual bleeding?: No Do you have any muscle aches/pain?: No Do you have any abdominal pain?: No Are you experiencing loss of taste or smell?: No Other Medical History Have you received the Flu Vaccine for this season: No Have you received the Pneumonia Vaccine: No ROS Obtained: Yes All systems reviewed & no additional complaints except as documented Physical Exam General General appearance: alert and in no apparent distress Head Head exam: atraumatic and normocephalic Eye Eye exam: Present PERRL and EOMI ENT ENT exam: Present mucous membranes moist Neck Neck exam: Present normal inspection Chest Chest inspection: Present normal inspection and symmetric chest wall rise Respiratory Respiratory exam: Present normal lung sounds bilaterally; Absent respiratory distress Cardiovascular Cardiovascular exam: Present regular rate and normal rhythm Abdominal Exam Abdominal exam: Present soft; Absent tenderness Extremities Exam Extremities exam: Present normal inspection Neurological Exam Neurological exam: Present alert and oriented X3 Psychiatric Psychiatric exam: Present normal affect Skin Skin exam: Present warm and dry Medical Decision Making Medical Records Medical records reviewed: Yes I reviewed the patient's medical records. Screening: Per USPSTF and CDC recommendations, given the prevalence of disease in our region, it is our hospital?s policy to screen for HIV and viral Hepatitis for all patients aged 18 and over and those with ongoing risk factors. Star Inquiry Pt receiving controlled substance: No Star was queried for this patient: No Vital Signs: 03/25/25 10:59 03/25/25 11:29 03/25/25 12:21 Temperature 98 F 97.4 F L Temperature Source Oral Oral Pulse Rate 70 73 Pulse Rate [Left] 72 Respiratory Rate 16 16 Blood Pressure 106/65 L 105/69 L Blood Pressure [Left Arm] 115/77 Blood Pressure Mean 83 Blood Pressure Mean [Left Arm] 89 Blood Pressure Source Automatic Cuff Blood Pressure Source [Left Arm] Automatic Cuff Blood Pressure Position Sitting 02 Sat by Pulse Oximetry 100 99 Oxygen Delivery Method Room Air Room Air Lab Data Lab results reviewed: Yes I reviewed the patient's lab results. Lab Results 03/25/25 10:52: Urine Color Yellow, Urine Appearance Clear, Urine pH 6.0, Ur Specific [place] 1.020, Urine Protein Negative, Urine Glucose (UA) Negative, Urine Ketones Negative, Urine Blood 3+ A, Urine Nitrate Negative, Urine Bilirubin Negative, Urine Urobilinogen 0.2, Ur Leukocyte Esterase Negative, Urine RBC 10-20, Urine WBC Occasional, Ur Squamous Epith Cells 5-10, Urine Bacteria Trace, Urine Mucus Trace, Urine HCG, Qual Negative 03/25/25 11:28: WBC 5.9, RBC 4.16 L, Hgb 11.3 L, Hct 34.9 L, MCV 83.9, MCH 27.2, MCHC 32.4, RDW 14.0, Plt Count 259, MPV 10.7 H, Neut % (Auto) 46.8, Lymph % (Auto) 37.9, [place] % (Auto) 7.1, Eos % (Auto) 7.5, Baso % (Auto) 0.5, Neut # (Auto) 2.8, Lymph # (Auto) 2.2, [place] # (Auto) 0.4, Eos # (Auto) 0.4, Baso # (Auto) 0.0, Sodium 138, Potassium 4.0, Chloride 101, Carbon Dioxide 27, Anion Gap 14.0, BUN 8, Creatinine 0.50 L D, Estimated Creat Clear 167, Estimated GFR 157, Est GFR ( Amer) 190 D, Glucose 87, Calcium 9.2, Magnesium 1.7, Total Bilirubin 0.5, AST 23, ALT 11 L, Alkaline Phosphatase 68, Total Protein 7.6, Albumin 4.3, Globulin 3.3 H, Albumin/Globulin Ratio 1.3, TSH 1.72, Thyroxine (T4) 9.1 03/25/25 11:28 03/25/25 11:28 Orders (Tests/Meds): ED MEDICATIONS Discontinued Medications Generic Name Dose Route Start Last Admin Trade Name Freq PRN Reason Stop Dose Admin Ondansetron HCl 4 mg 03/25/25 11:17 03/25/25 11:32 Ondansetron 4mg/2ml Vial IV 03/25/25 11:18 4 mg ONCE ONE Administration ORDERS Category Date Time Status Complete Blood Count Auto Diff Stat Lab 03/25/25 11:28 Completed Comprehensive Metabolic Panel Stat Lab 03/25/25 11:28 Completed MAG [Magnesium] Stat Lab 03/25/25 11:28 Completed T4 (Thyroxine) Stat Lab 03/25/25 11:28 Completed TSH [Thyroid Stimulating Hormone] Stat Lab 03/25/25 11:28 Completed UA [Urinalysis and Microscopic] Stat Lab 03/25/25 10:52 Completed Urine , HCG Qual. Stat Lab 03/25/25 10:52 Completed Medical Decision Narrative: 19-year-old female presents emergency department with generalized weakness fatigue nausea and hot flashes for several days, differential diagnose include but not limited to premenstrual dysphoric syndrome, primary dysmenorrhea, extralight disturbance, cardiac arrhythmia, physiologic , anxiety reaction, thyroid disorder among others. I discussed this patient's case with the attending physician Obtain basic laboratory studies, EKG, magnesium level, TSH, reflex T4, UA, hCG qualitative, will give 4 mg IV Zofran for nausea. Urine hCG is negative. 3+ hematuria as noted on urinalysis, negative leukocyte esterase, negative nitrites, 10-20 RBCs, occasional WBCs, 5-10 squamous epithelial cells trace urine bacteria. CBC is notable for hemoglobin of 11.3, hematocrit 34.9, otherwise unremarkable CMP is gross unremarkable TSH and T4 are negative Discussed all results with the patient and with the bedside patient family agree with the current plan/discharge plan, will need to follow-up with EMPLOYEE WELFARE MANAGER/women's health provider, as this most likely is premenstrual syndrome versus dysmenorrhea, could benefit from hormone laboratory studies, patient was given strict ED return precautions, patient has antiemetics at home, patient is otherwise remained hemodynamically stable without her time the emerged part, has no other acute signs or symptoms. Clear to be discharged home to self-care. Critical Care Critical Care Time Critical Care Time: No
[2025-03-25 11:29] VITALS: BP 106/65; PULSE 70; O2SAT 99
[2025-03-25] MEDS: ONDANSETRON 4MG/2ML VIAL 4 MG IV (11:32)
--- NOTE | 2025-03-25 11:32 | ECG_ITS ---
APPROVED REPORT Exam: Resting ECG HR:70 bpm ECG Measurements Heart Rate 70 AXES FL 176 P 75 QRSd 92 QRS 71 QT 374 T 44 QTc 395 Conclusion Normal sinus rhythm without acute ST or T wave changes concerning for ischemia Electronically signed by : Stacey Servin, 03/26/2025 07:10:31
[2025-03-25 11:36] LABS: Hematocrit 34.9 % (37.0-47.0); Hemoglobin 11.3 g/dL (12.2-16.2); Immature Granulocytes % 0.2 %; Mean Corpuscular HGB Conc 32.4 g/dL (31.8-35.4); Mean Corpuscular Hemoglobin 27.2 pg (27.0-31.2); Mean Corpuscular Volume 83.9 fl (81-99); Nucleated Red Blood Cells % 0 %; Platelet Count 259 K/mm3 (142-424); Red Blood Count 4.16 M/mm3 (4.20-5.40); Red Cell Distribution Width-SD 42.8 fL; White Blood Count 5.9 K/mm3 (4.5-13.0)
[2025-03-25 11:43] LABS: Alanine Aminotransferase 11 U/L (12-78); Albumin Level 4.3 g/dl (3.5-5.0); Albumin/Globulin Ratio 1.3 (1.1-1.8); Alkaline Phosphatase 68 U/L (38-126); Anion Gap 14.0 mEq/L (5-15); Aspartate Amino Transferase 23 U/L (14-36); Bilirubin,Total 0.5 mg/dl (0.2-1.3); Blood Urea Nitrogen 8 mg/dl (7-17); Calcium 9.2 mg/dl (8.4-10.2); Carbon Dioxide 27 mmol/L (22.0-30.0); Chloride 101 mmol/L (98-107); Creatinine Clearance Estimated 167 mL/min (50-200); Creatinine,Serum 0.50 mg/dl (0.52-1.04); Estimated Glomerular Filt Rate 157 ml/min (>60); GFR (African American) 190 ML/MIN (>60); Globulin 3.3 g/dL (1.3-3.2); Glucose 87 mg/dl (74-100); Potassium 4.0 mmoL/L (3.5-5.1); Sodium 138 mmol/L (136-145); Total Protein,Serum 7.6 g/dl (6.3-8.2)
[2025-03-25 11:58] LABS: Magnesium 1.7 mg/dl (1.6-2.3)
[2025-03-25 12:01] LABS: T4 (Thyroxine) 9.1 ug/dl (5.53-11.0)
[2025-03-25 12:15] LABS: Thyroid Stimulating Hormone 1.72 uIU/mL (0.465-4.68)
[2025-03-25 12:21] VITALS: BP 105/69; PULSE 73; RESP 16; TEMP 36.3; O2SAT 100
== END 2025-03-25 12:25 | disposition home or self-care (01) ==
PROVIDERS: Physician Assistant; Emergency Provider Student in an Organized Health Care Education/Training Program; PCP Family Medicine
DX: R11.0 Nausea (principal); R42 Dizziness and giddiness; R53.83 Other fatigue; R23.2 Flushing
CPT/HCPCS: 80053; 81001; 81025; 83735; 84436; 84443; 85025; 93005; 96374; 99284; J2405

== ENCOUNTER 2025-05-07 11:15 | Outpatient (CLI) | payer MEDICAID, SELFPAY | END 2025-05-07 23:59 | disposition home or self-care (01) | LOC: LAB.DROPOF 05-08 12:43 | PROVIDERS: PCP Nurse Practitioner; Visit Provider Nurse Practitioner | DX: R31.9 Hematuria, unspecified (principal) | CPT/HCPCS: 87086; 87088 ==

== ENCOUNTER 2025-05-14 14:48 | Outpatient (CLI) | payer MEDICAID, SELFPAY | END 2025-05-14 23:59 | disposition home or self-care (01) | LOC: LAB 14:49 | PROVIDERS: PCP Family Medicine; Visit Provider Obstetrics & Gynecology | DX: Z34.90 Encounter for supervision of normal pregnancy, unspecified, unspecified trimester (principal); Z3A.00 Weeks of gestation of pregnancy not specified | CPT/HCPCS: 36415; 84144; 84702 ==

== ENCOUNTER 2025-06-01 11:47 | Emergency (ER) | payer MEDICAID, SELFPAY ==
[2025-06-01 12:00] VITALS: BP 121/82; PULSE 88; O2SAT 97
[2025-06-01 12:06] VITALS: BP 126/79; PULSE 90; RESP 18; TEMP 36.9; O2SAT 98; BMI 21.4
--- NOTE | 2025-06-01 12:06 | US_ITS ---
PROCEDURE INFORMATION: Exam: US , Transvaginal Exam date and time: 06/01/2025 12:30 PM Age: 19 years old Clinical indication: Pain; Other: Cramping; Gestational age or lmp: 10w3d; ; Additional info: location LABS AND CLINICAL REPORTS: Last menstrual period start date: 03/23/2025 Gestational age (Established): 10 w 0 d Estimated due date (Established): 12/28/2025 TECHNIQUE: Imaging protocol: Real-time transvaginal obstetrical ultrasound of the maternal pelvis with image documentation. Transvaginal imaging was used for better evaluation of the fetus, adnexa, and/or cervix. COMPARISON: CT ABDOMEN PELVIS W CON 10/20/2021 11:14 AM FINDINGS: Gestation: There is a single live intrauterine gestation with a yolk sac and pole.. Spaulding-rump length measures 35.25 mm corresponding to an estimated gestational age of 10 weeks and 3 days plus or minus 10 days. movement is visualized. Yolk sac measures 6.1 mm. heart rate: 170 bpm BIOMETRY: Gestational age (AUA): 10 w 3 d +/-10 days. Estimated due date (AUA): 12/25/2025 Spaulding rump length (CRL): 35.25 mm. EGA (CRL) is 10 w 3 d plus or minus ten days. MATERNAL: Uterus: The uterus is retroverted. Right ovary/adnexa: Right ovary measures 3.2 cm x 2.88 cm x 2.75 cm. Right ovarian volume is 13.27 mL. There is a right ovarian cyst measuring 2.5 x 2.1 x 2.0 cm likely reflecting corpus luteal cyst. Left ovary/adnexa: Left ovary measures 2.74 cm x 1.97 cm x 2 cm. Left ovarian volume is 5.65 mL. Duplex assessment demonstrates normal flow in both ovaries. IMPRESSION: 1. Single live intrauterine gestation with estimated gestational age based on pole of approximately 10 weeks and 3 days +/-10 days. 2. Normal appearance the left ovary. 3. 2.5 x 2.1 x 2.0 cm right ovarian cyst likely reflecting corpus luteal cyst.
--- NOTE | 2025-06-01 12:12 | ED_ITS ---
<Statement entered by Eugenio Hall MD - 06/02/25 09:00> I was consulted by the MATTHEW, and we discussed the complexity of the problems being addressed. I approved the treatment and management plan for this patient's care in the emergency department, thus performing a substantive portion of the medical decision making. Eugenio Hall MD Discharge Plan Disposition Patient Disposition: Home, Self-Care Prescriptions Prescriptions: New nitrofurantoin monohyd/m-cryst [Macrobid] 100 mg capsule 100 mg PO Q12H 7 Days Qty: 14 0RF Rx Instructions: must administer with a meal/food ondansetron 4 mg tablet,disintegrating 4 mg PO Q8H PRN (Reason: nausea and vomiting) Qty: 7 0RF No Action Daily Probiotic (10 Strains) 4 billion cell capsule 1 cap PO DAILY Qty: 90 3RF sertraline [Zoloft] 25 mg tablet 25 mg PO DAILY Qty: 30 2RF ondansetron HCl 4 mg tablet 4 mg PO Q8H PRN (Reason: nausea and vomiting) Qty: 20 1RF famotidine 20 mg tablet 20 mg PO BID PRN (Reason: reflux) Qty: 60 1RF dextromethorphan-guaifenesin 60-1,200 mg tablet extended release 12 hr 1 tab PO Q12H Qty: 60 0RF cefdinir 300 mg capsule 300 mg PO BID Qty: 20 0RF Classic 28 mg iron- 800 mcg tablet 1 tab PO DAILY Qty: 30 1RF ascorbic acid (vitamin C) 500 mg tablet 500 mg PO DAILY Qty: 30 0RF Referrals Follow up/Referrals: En Phillip MD [Primary Care Provider, Family Practice] - See instructions Clinical Impressions Clinical Impression: Print Language Print Language: Icelandic Discharge ED Provider: Eugenio Hall General Adult HPI General Chief complaint: Nausea/Vomiting/Diarrhea Stated complaint: Approx. 10 weeks AP / vomiting Time Seen by Provider: 06/01/25 11:56 History of Present Illness HPI narrative: Ashanti Braun is a 19-year-old female past medical history significant for anxiety and depression who presents emergency room tonight with complaints of nausea, vomiting, dizziness and . This morning states that she had a positive test. Has seen Dr. Elliott already, does have a follow-up with Dr. Elliott tomorrow Monday the . Reports that she has been having several episodes of NBNB emesis at home. Has been taking Zofran and Pepcid for this but ran out. No known sick contacts. Last menstrual period was approximately March 23. Reports some vague epigastric pain, cramping in nature. No diarrhea. Has had a cholecystectomy. No syncope noted. She states she feels generally weak and mildly dizzy from vomiting. Endorsing some mild nausea at this time, no other complaints. Please note that the above description of symptoms, and this electronic medical record under categorization of recalled from ER triage doctor by RN are reflective of an initial nursing assessment, however, is not reflective of my full history and physical exam that was personally taken and clarified. Consequentially, this proceeding description of symptoms, which may include the patient's cauterized chief complaint in the EMR, do not reflect my personal clinical impression, and the ultimate description of the history of present illness stated complaints should be deferred to this section of this note. Unless stated otherwise were congruent with the section of the note, additional signs, symptoms, or incongruence can be interpreted as in or accurate with my clinical impression. Related Data Previous Rx's ?Medication ?Instructions ?Recorded Lactobac 51-Bifidobac 1 cap PO DAILY #90 caps 04/04 3-L.lactis-S.thermophilus 4 billion cell capsule (Daily Probiotic (10 Strains)) sertraline 25 mg tablet (Zoloft) 25 mg PO DAILY #30 ta bs 04/24/25 vits no.126-ferrous fum 1 tab PO DAILY #30 ta bs 04/28/25 28 mg iron-folic acid 800 mcg tablet (Classic ) ascorbic acid (vitamin C) 500 mg 500 mg PO DAILY #30 t abs 05/01/25 tablet cefdinir 300 mg capsule 300 mg PO BID #20 caps 05/07 dextromethorphan-guaifenesin ER 60 1 tab PO Q12H #60 t abs 05/07/25 mg-1,200 mg tab,extend release,12hr famotidine 20 mg tablet 20 mg PO BID PRN reflux #60 tabs 05/07/25 ondansetron HCl 4 mg tablet 4 mg PO Q8H PRN nausea and 05/07/25 vomiting #20 tabs nitrofurantoin 100 mg PO Q12H 7 days #14 ca ps 06/01/25 monohydrate/macrocrystals 100 mg capsule (Macrobid) ondansetron 4 mg disintegrating 4 mg PO Q8H PRN nausea and 06/01/25 tablet vomiting #7 tabs Allergies Allergy/AdvReac Type Severity Reaction Status Date / Time No Known Allergies Allergy Verified 05/14/25 13:51 PFSH [facility] Disclaimer: The information contained in this section may have been updated after the patient was seen, as this information can be updated by other users. Medical History Positive home test Aphthous ulcer of mouth Akathisia Post-cholecystectomy syndrome GERD (gastroesophageal reflux disease) Oropharyngeal candidiasis Surgical History Hx of cholecystectomy Family History (Updated 06/01/25 @ 12:07 by Aissatou Deal RN) Other No significant family history Social History Smoking Status: Never smoker alcohol intake: never substance use type: denies use current occupational status: employed and student Travel in the last 8 weeks?: None household members: family housing: house marital status: single well-balanced diet: daily or most days Have you lived/traveled outside US in past 30 days?: No Contact w/someone who lives/traveled outside US past 30 days?: No Exposure to someone with infectious disease in past 14 days?: No Do you have a fever (greater than 100.4 F or 38 C)?: No Have you tested positive for COVID-19?: No Exposed to someone with COVID-19 in past 14 days?: No Do you have a sore throat?: No Do you have a cough?: No Do you have any weakness?: No Do you have any diarrhea?: No Are you experiencing any unusual bleeding?: No Do you have any muscle aches/pain?: No Do you have any abdominal pain?: No Are you experiencing loss of taste or smell?: No Other Medical History Have you received the Flu Vaccine for this season: No Have you received the Pneumonia Vaccine: No ROS Obtained: Yes All systems reviewed & no additional complaints except as documented Physical Exam General General appearance: alert and in no apparent distress Head Head exam: atraumatic, normocephalic and normal inspection Eye Eye exam: Present normal appearance, PERRL and EOMI ENT ENT exam: Present normal exam, normal oropharynx, mucous membranes moist, TM's normal bilaterally and normal external ear exam Neck Neck exam: Present normal inspection, full ROM and trachea midline; Absent meningismus or lymphadenopathy Chest Chest inspection: Present normal inspection and symmetric chest wall rise; Absent tenderness Respiratory Respiratory exam: Present normal lung sounds bilaterally; Absent respiratory distress Cardiovascular Cardiovascular exam: Present regular rate and normal rhythm; Absent JVD Abdominal Exam Abdominal exam: Present soft and normal bowel sounds; Absent distention, tenderness or guarding Extremities Exam Extremities exam: Present normal inspection, full ROM and normal capillary refill; Absent calf tenderness Back Exam Back exam: Present normal inspection; Absent tenderness Neurological Exam Neurological exam: Present alert and oriented X3 Psychiatric Psychiatric exam: Present normal affect and normal mood Skin Skin exam: Present warm, dry, intact and normal color Lymphatic Lymphatic Findings: no adenopathy Medical Decision Making Medical Records Screening: Per USPSTF and CDC recommendations, given the prevalence of disease in our region, it is our hospital?s policy to screen for HIV and viral Hepatitis for all patients aged 18 and over and those with ongoing risk factors. Star Inquiry Pt receiving controlled substance: No Vital Signs: 06/01/25 12:00 06/01/25 12:06 06/01/25 12:06 Temperature 98.5 F 98.5 F Temperature Source Oral Pulse Rate 88 90 Pulse Rate [Right] 90 Respiratory Rate 18 18 Blood Pressure 121/82 126/79 Blood Pressure [Right Arm] 126/79 Blood Pressure Mean 89 Blood Pressure Mean [Right Arm] 94 02 Sat by Pulse Oximetry 97 98 98 06/01/25 12:31 06/01/25 14:58 Temperature 97.8 F Temperature Source Pulse Rate 79 64 Pulse Rate [Right] Respiratory Rate 16 Blood Pressure 110/74 123/70 Blood Pressure [Right Arm] Blood Pressure Mean 79 Blood Pressure Mean [Right Arm] 02 Sat by Pulse Oximetry 96 Lab Data Lab Results 06/01/25 12:00: Urine Color Yellow, Urine Appearance Cloudy, Urine pH 7.5, Ur Specific [place] 1.020, Urine Protein Negative, Urine Glucose (UA) Negative, Urine Ketones 1+, Urine Blood Trace-i, Urine Nitrate Negative, Urine Bilirubin Negative, Urine Urobilinogen 1.0, Ur Leukocyte Esterase Negative, Urine RBC None, Urine WBC 5-10, Ur Squamous Epith Cells 3-5, Amorphous Sediment 1+, Urine Bacteria 4+ 06/01/25 12:20: WBC 10.4, RBC 4.04 L, Hgb 10.9 L, Hct 32.7 L, MCV 80.9 L, MCH 27.0, MCHC 33.3, RDW 13.4, Plt Count 294, MPV 9.0, Neut % (Auto) 66.3, Lymph % (Auto) 21.6, [place] % (Auto) 8.4, Eos % (Auto) 3.0, Baso % (Auto) 0.3, Neut # (Auto) 6.9, Lymph # (Auto) 2.2, [place] # (Auto) 0.9, Eos # (Auto) 0.3, Baso # (Auto) 0.0, Sodium 135 L, Potassium 3.3 L, Chloride 101, Carbon Dioxide 25, Anion Gap 12.3, BUN 6 L, Creatinine 0.40 L, Estimated Creat Clear 207, Estimated GFR 203, Est GFR ( Amer) 246, Glucose 94, Calcium 9.2, Magnesium 1.7, Total Bilirubin 0.5, AST 26, ALT 14, Alkaline Phosphatase 60, Total Protein 7.4, Albumin 4.2, Globulin 3.2, Albumin/Globulin Ratio 1.3, Lipase 75 06/01/25 12:20 06/01/25 12:20 Orders (Tests/Meds): ED MEDICATIONS Discontinued Medications Generic Name Dose Route Start Last Admin Trade Name Freq PRN Reason Stop Dose Admin Ondansetron HCl 4 mg 06/01/25 12:10 06/01/25 12:29 Ondansetron 4mg Odt SL 06/01/25 12:11 4 mg ONCE ONE Administration ORDERS Category Date Time Status CBC w/Auto Diff [Complete Blood Count Auto Diff] Stat Lab 06/01/25 12:20 Completed CMP [Comprehensive Metabolic Panel] Stat Lab 06/01/25 12:20 Completed Lipase Stat Lab 06/01/25 12:20 Completed MAG [Magnesium] Stat Lab 06/01/25 12:20 Completed UA [Urinalysis and Microscopic] Stat Lab 06/01/25 12:00 Completed Urine Culture Stat Micro 06/01/25 12:00 Received US OB transvaginal Stat Ultrasound 06/01/25 12:06 Completed Medical Decision Narrative: In summary patient is an 19-year-old female who presents emergency department for evaluation of nausea, vomiting, dizziness, abdominal pain. Patient is approximately 10 weeks . Does have a follow-up scheduled tomorrow with Dr. Elliott for an OB appointment. Has been taking Zofran and Pepcid for her nausea per Dr. Elliott's orders. Reports some mild dizziness and generalized weakness from vomiting, no syncope noted. Does not really get dizzy or lightheaded abruptly when standing, just feels generally unwell. Patient is hemodynamically stable, normal sinus rhythm on the bedside monitor, 97% on room air upon arrival, afebrile. Unremarkable nonfocal physical exam, patient is well-appearing, appears stated age, in no acute distress.. Differential diagnosis includes ectopic , gastritis, acute cystitis. Initial workup will be conducted with hematologic labs, transvaginal ultrasound. Initial interventions include Zofran. Initial workup reviewed by me essentially unremarkable, patient is a bit anemic which is chronic for her compared to prior labs. UA with 4+ bacteria and it, negative for leuks or nitrites. Upon repeat evaluation patient had resolution of nausea with Zofran. Given this patient medically stable and appropriate for discharge at this time. She will be discharged with a prescription for Macrobid for 7 days for treatment of bacteria and a woman, will also refill her prescription for Zofran which she states she ran out of yesterday. She does have follow-up with Dr. Elliott, CULINARY MANAGER tomorrow and I instructed her to keep this appointment. You should complete all of your antibiotics as prescribed. She was given return precautions to the ER and verbalized understanding. Critical Care Critical Care Time Critical Care Time: No
[2025-06-01 12:13] LABS: Microscopic, Urine URINE MICROSCOPIC (MICROSCOPIC)
[2025-06-01 12:23] LABS: Bilirubin,Urine Negative (Negative); Color,Urine YELLOW (Yellow); Glucose,Urine (UA) Negative (Negative); Ketones,Urine 1+ (Negative); Leukocyte Esterase,Urine Negative (Negative); PH,Urine 7.5 (5.0-8.5); Protein,Urine Negative (Negative); Specific Gravity, Urine 1.020 (1.005-1.030); Urobilinogen,Urine 1.0 EU/dl (0.2)
[2025-06-01] MEDS: ONDANSETRON 4MG ODT 4 MG SL (12:29)
[2025-06-01 12:31] VITALS: BP 110/74; PULSE 79; O2SAT 96
[2025-06-01 12:32] LABS: Hematocrit 32.7 % (37.0-47.0); Hemoglobin 10.9 g/dL (12.2-16.2); Immature Granulocytes % 0.4 %; Mean Corpuscular HGB Conc 33.3 g/dL (31.8-35.4); Mean Corpuscular Hemoglobin 27.0 pg (27.0-31.2); Mean Corpuscular Volume 80.9 fl (81-99); Nucleated Red Blood Cells % 0 %; Platelet Count 294 K/mm3 (142-424); Red Blood Count 4.04 M/mm3 (4.20-5.40); Red Cell Distribution Width-SD 39.5 fL; White Blood Count 10.4 K/mm3 (4.5-13.0)
[2025-06-01 12:48] LABS: Albumin Level 4.2 g/dl (3.5-5.0); Chloride 101 mmol/L (98-107); Potassium 3.3 mmoL/L (3.5-5.1); Sodium 135 mmol/L (136-145)
[2025-06-01 12:50] LABS: Blood Urea Nitrogen 6 mg/dl (7-17)
[2025-06-01 12:51] LABS: Alanine Aminotransferase 14 U/L (12-78); Albumin/Globulin Ratio 1.3 (1.1-1.8); Alkaline Phosphatase 60 U/L (38-126); Anion Gap 12.3 mEq/L (5-15); Aspartate Amino Transferase 26 U/L (14-36); Bilirubin,Total 0.5 mg/dl (0.2-1.3); Calcium 9.2 mg/dl (8.4-10.2); Carbon Dioxide 25 mmol/L (22.0-30.0); Creatinine Clearance Estimated 207 mL/min (50-200); Creatinine,Serum 0.40 mg/dl (0.52-1.04); Estimated Glomerular Filt Rate 203 ml/min (>60); GFR (African American) 246 ML/MIN (>60); Globulin 3.2 g/dL (1.3-3.2); Glucose 94 mg/dl (74-100); Lipase 75 U/L (23-300); Magnesium 1.7 mg/dl (1.6-2.3); Total Protein,Serum 7.4 g/dl (6.3-8.2)
[2025-06-01 13:01] LABS: Amorphous Sediment,Urine 1+ /lpf; Bacteria,Urine 4+ /lpf
[2025-06-01 14:58] VITALS: BP 123/70; PULSE 64; RESP 16; TEMP 36.6; O2SAT 98
== END 2025-06-01 14:59 | disposition home or self-care (01) ==
PROVIDERS: Nurse Practitioner Acute Care; Emergency Provider Emergency Medicine; PCP Family Medicine
DX: O21.9 Vomiting of pregnancy, unspecified (principal); R42 Dizziness and giddiness; R53.1 Weakness; O23.41 Unspecified infection of urinary tract in pregnancy, first trimester; R82.71 Bacteriuria; Z3A.10 10 weeks gestation of pregnancy
CPT/HCPCS: 76817; 80053; 81001; 83690; 83735; 85025; 87086; 99284; 99285; Q0162

== ENCOUNTER 2025-06-02 10:10 | Outpatient (CLI) | payer MEDICAID, SELFPAY ==
[2025-06-02 10:58] LABS: Hematocrit 33.8 % (37.0-47.0); Hemoglobin 10.9 g/dL (12.2-16.2); Immature Granulocytes % 0.5 %; Mean Corpuscular HGB Conc 32.2 g/dL (31.8-35.4); Mean Corpuscular Hemoglobin 26.3 pg (27.0-31.2); Mean Corpuscular Volume 81.4 fl (81-99); Nucleated Red Blood Cells % 0 %; Platelet Count 330 K/mm3 (142-424); Red Blood Count 4.15 M/mm3 (4.20-5.40); Red Cell Distribution Width-SD 39.6 fL; White Blood Count 10.3 K/mm3 (4.5-13.0)
[2025-06-02 12:13] LABS: Hepatitis C Ab Qual. W/ RFX NEGATIVE (Negative)
[2025-06-02 13:01] LABS: RPR W/RFX Titers Nonreactive (Nonreactive)
[2025-06-03 07:55] LABS: Rubella Antibodies, IgG 3.68 index (Immune >0.99)
[2025-06-03 08:40] LABS: Hepatitis B Surface Antigen Negative (Negative)
[2025-06-04 11:20] LABS: Neisseria gonorrhoeae, NAA Negative (Negative)
== END 2025-06-02 23:59 | disposition home or self-care (01) ==
PROVIDERS: PCP Family Medicine; Visit Provider Obstetrics & Gynecology
DX: Z34.90 Encounter for supervision of normal pregnancy, unspecified, unspecified trimester (principal)
CPT/HCPCS: 36415; 85025; 86592; 86762; 86803; 86850; 87086; 87340; 87389; 87491; 87591

== ENCOUNTER 2025-06-14 07:17 | Emergency (ER) | payer MEDICAID, SELFPAY ==
[2025-06-14] VITALS (12 sets, daily range): BP systolic 101–124; BP diastolic 67–83; PULSE 82–101; RESP 18–20; TEMP 36.7–37; O2SAT 97–100; BMI 21.6
[2025-06-14 07:43] LABS: Microscopic, Urine URINE MICROSCOPIC (MICROSCOPIC)
--- NOTE | 2025-06-14 07:43 | HMH.EDGENADL ---
Discharge Plan Disposition Patient Disposition: Home, Self-Care Condition: Good Prescriptions Prescriptions: New nitrofurantoin macrocrystal 100 mg capsule 100 mg PO BID 5 Days Qty: 10 0RF Rx Instructions: must administer with a meal/food No Action ondansetron HCl 4 mg tablet 4 mg PO Q8H PRN (Reason: nausea and vomiting) Qty: 20 2RF famotidine 20 mg tablet 20 mg PO BID PRN (Reason: reflux) Qty: 60 1RF Classic 28 mg iron- 800 mcg tablet 1 tab PO DAILY Qty: 30 1RF ascorbic acid (vitamin C) 500 mg tablet 500 mg PO DAILY Qty: 90 1RF lamotrigine [Lamictal] 25 mg tablet 25 mg PO DAILY Qty: 42 0RF Rx Instructions: Take 1 tablet daily for 2 weeks and then increase to 2 tablets daily. If you develop a rash or any itching, stop the medication and call the clinic. nitrofurantoin monohyd/m-cryst [Macrobid] 100 mg capsule 100 mg PO Q12H 7 Days Qty: 14 0RF Rx Instructions: must administer with a meal/food Referrals Follow up/Referrals: Jessica Napoles APRN [Primary Care Provider, Family Practice] - See instructions Activity Restrictions/Add. Instructions Additional Instructions/Restrictions: Please take Macrobid for bacteria in your urine. I want you to closely monitor your abdominal pain. If your pain concentrates in the right lower quadrant and becomes more severe I want you to return immediately. Additionally, if you develop dehydration, intractable nausea and vomiting, or fevers please also return. You can take Tylenol for pain. Clinical Impressions Clinical Impression: Acute right lower quadrant pain, First trimester Stand Alone Forms Stand Alone Forms: Work/School Release Instructions Patient Instructions: DI for Acute Abdominal Pain Print Language Print Language: Hungarian Discharge ED Provider: Fortunato Baldwin General Adult HPI General Chief complaint: Abdominal Pain Stated complaint: Abd Pain & Vomiting/12 weeks AP Time Seen by Provider: 06/14/25 07:28 Mode of Arrival: Ambulatory Source of Information: Patient and Relative Description of Symptoms (Recalled from ER Triage Doc. by RN): pt is here for lower abd pain since yesterday, it woke her up in the middle of the night and she has also been vomiting, pt is 12 weeks and has seen ob with protocol care History of Present Illness HPI narrative: This is a 19-year-old female patient, with past medical history of anxiety and major depressive disorder, who is presenting to the emergency department today for right lower quadrant abdominal pain. Patient is currently 12 weeks and has a confirmed intrauterine by [facility] here at our hospital. She tells me that yesterday at around 2:40 PM she began developing right lower quadrant abdominal pain. Pain has worsened into this morning and this prompted her visit to the emergency department today. She has had recurrent nausea and vomiting throughout , but she is not currently experiencing vomiting at this time. She does have nausea. She tells me that she is not having any dysuria or hematuria, no vaginal bleeding, no vaginal discharge, and she is not experiencing any associated GI symptoms such as hematochezia, melena, or diarrhea. She has been somewhat constipated. She denies fevers and chills. Related Data Previous Rx's ?Medication ?Instructions ?Recorded vits no.126-ferrous fum 1 tab PO DAILY #30 tabs 04/28/25 28 mg iron-folic acid 800 mcg tablet (Classic ) famotidine 20 mg tablet 20 mg PO BID PRN reflux #60 tabs 05/07/25 nitrofurantoin 100 mg PO Q12H 7 days #14 caps 06/01/25 monohydrate/macrocrystals 100 mg capsule (Macrobid) ascorbic acid (vitamin C) 500 mg 500 mg PO DAILY #90 tabs 06/02/25 tablet ondansetron HCl 4 mg tablet 4 mg PO Q8H PRN nausea and 06/02/25 vomiting #20 tabs lamotrigine 25 mg tablet (Lamictal) 25 mg PO DAILY #42 tabs 06/04/25 nitrofurantoin macrocrystal 100 mg 100 mg PO BID 5 days #10 caps 06/14/25 capsule Allergies Allergy/AdvReac Type Severity Reaction Status Date / Time No Known Allergies Allergy Verified 06/03/25 10:25 [facility] Disclaimer: The information contained in this section may have been updated after the patient was seen, as this information can be updated by other users. Medical History Nausea and vomiting during Anxiety disorder affecting , antepartum Positive home test Aphthous ulcer of mouth Akathisia Post-cholecystectomy syndrome GERD (gastroesophageal reflux disease) Oropharyngeal candidiasis Surgical History Hx of cholecystectomy Family History Other No significant family history Social History Smoking Status: Never smoker alcohol intake: never substance use type: denies use current occupational status: employed and student Travel in the last 8 weeks?: None household members: family housing: house marital status: single well-balanced diet: daily or most days Have you lived/traveled outside [place] in past 30 days?: No Contact w/someone who lives/traveled outside US past 30 days?: No Exposure to someone with infectious disease in past 14 days?: No Do you have a fever (greater than 100.4 F or 38 C)?: No Have you tested positive for COVID-19?: No Exposed to someone with COVID-19 in past 14 days?: No Do you have a sore throat?: No Do you have a cough?: No Do you have any weakness?: No Do you have any diarrhea?: No Are you experiencing any unusual bleeding?: No Do you have any muscle aches/pain?: No Do you have any abdominal pain?: No Are you experiencing loss of taste or smell?: No Other Medical History Have you received the Flu Vaccine for this season: No Have you received the Pneumonia Vaccine: No ROS Obtained: Yes Systems reviewed as appropriate & no additional complaints except as documented Physical Exam General General appearance: other (See MDM) Respiratory Respiratory exam: Present other (See MDM) Cardiovascular Cardiovascular exam: Present other (See MDM) Neurological Exam Neurological exam: Present other (See MDM) Medical Decision Making Medical Records Medical records reviewed: Yes I reviewed the patient's medical records. Screening: Per USPSTF and CDC recommendations, given the prevalence of disease in our region, it is our hospital?s policy to screen for HIV and viral Hepatitis for all patients aged 18 and over and those with ongoing risk factors. Star Inquiry Pt receiving controlled substance: No Star was queried for this patient: No Vital Signs: 06/14/25 07:26 06/14/25 07:29 06/14/25 07:36 Temperature 98.6 F Temperature Source Oral Pulse Rate 89 85 Pulse Rate [Left Radial] 101 H Respiratory Rate 20 Blood Pressure 118/74 101/67 L Blood Pressure [Right Arm] 118/74 Blood Pressure Mean Blood Pressure Mean [Right Arm] 88 Blood Pressure Source Blood Pressure Position 02 Sat by Pulse Oximetry 99 100 98 Oxygen Delivery Method Room Air Room Air Room Air 06/14/25 08:00 06/14/25 08:30 06/14/25 09:00 Temperature Temperature Source Pulse Rate 93 H 82 98 H Pulse Rate [Left Radial] Respiratory Rate 18 Blood Pressure 107/68 L 109/74 L 109/69 L Blood Pressure [Right Arm] Blood Pressure Mean 80 Blood Pressure Mean [Right Arm] Blood Pressure Source Blood Pressure Position 02 Sat by Pulse Oximetry 100 100 100 Oxygen Delivery Method Room Air Room Air 06/14/25 09:30 06/14/25 10:00 06/14/25 10:30 Temperature Temperature Source Pulse Rate 90 94 H 90 Pulse Rate [Left Radial] Respiratory Rate 18 18 Blood Pressure 115/75 124/78 120/83 Blood Pressure [Right Arm] Blood Pressure Mean 82 98 Blood Pressure Mean [Right Arm] Blood Pressure Source Blood Pressure Position 02 Sat by Pulse Oximetry 100 100 100 Oxygen Delivery Method Room Air 06/14/25 11:00 06/14/25 11:10 06/14/25 11:15 Temperature 98.2 F 98.0 F Temperature Source Oral Pulse Rate 88 87 93 H Pulse Rate [Left Radial] Respiratory Rate 20 18 Blood Pressure 124/81 124/81 124/81 Blood Pressure [Right Arm] Blood Pressure Mean Blood Pressure Mean [Right Arm] Blood Pressure Source Automatic Cuff Blood Pressure Position Sitting 02 Sat by Pulse Oximetry 99 Oxygen Delivery Method Room Air Room Air Room Air Lab Data Lab Results 06/14/25 07:22: Urine Color Yellow, Urine Appearance Clear, Urine pH 5.5, Ur Specific [place] 1.025, Urine Protein Negative, Urine Glucose (UA) Negative, Urine Ketones 3+, Urine Blood 2+ A, Urine Nitrate Negative, Urine Bilirubin Negative, Urine Urobilinogen 0.2, Ur Leukocyte Esterase Negative, Urine RBC Occasional, Urine WBC Occasional, Ur Squamous Epith Cells Occasional, Amorphous Sediment Trace, Urine Bacteria Trace 06/14/25 07:33: WBC 7.6, RBC 4.22, Hgb 11.5 L, Hct 34.2 L, MCV 81.0, MCH 27.3, MCHC 33.6, RDW 13.6, Plt Count 280, MPV 9.4, Neut % (Auto) 79.5, Lymph % (Auto) 13.7, [place] % (Auto) 5.5, Eos % (Auto) 0.5, Baso % (Auto) 0.3, Neut # (Auto) 6.0, Lymph # (Auto) 1.0, [place] # (Auto) 0.4, Eos # (Auto) 0.0, Baso # (Auto) 0.0, Sodium 132 L, Potassium 3.4 L, Chloride 98, Carbon Dioxide 26, Anion Gap 11.4, BUN 3 L, Creatinine 0.40 L, Estimated Creat Clear 209, Estimated GFR 203, Est GFR ( Amer) 246, Glucose 98, Calcium 9.2, Total Bilirubin 0.3, AST 25, ALT 18, Alkaline Phosphatase 72, C-Reactive Protein 49.9 H, Total Protein 7.3, Albumin 3.9, Globulin 3.4 H, Albumin/Globulin Ratio 1.1, Lipase 56, HCG, Quant [id number] H 06/14/25 07:33 06/14/25 07:33 Orders (Tests/Meds): ED MEDICATIONS Discontinued Medications Generic Name Dose Route Start Last Admin Trade Name Freq PRN Reason Stop Dose Admin Diphenhydramine HCl 25 mg 06/14/25 08:27 06/14/25 08:35 Diphenhydramine 50mg/Ml Vial IV 06/14/25 08:28 25 mg ONCE ONE Administration Dextrose/Lactated Ringer's 1,000 mls @ 999 mls/hr 06/14/25 08:28 06/14/25 10:12 Dextrose 5% In Lactated Ringer's 1000ml IV 06/14/25 09:28 Infused .Q1H1M ONE Infusion Metoclopramide HCl 10 mg 06/14/25 08:27 06/14/25 08:35 Metoclopramide Hcl 10mg/2ml Vial IVP 06/14/25 08:28 10 mg ONCE ONE Administration ORDERS Category Date Time Status POCUS Point of Care (ER Only) Stat Exams 06/14/25 07:39 Completed CBC w/Auto Diff [Complete Blood Count Auto Diff] Stat Lab 06/14/25 07:33 Completed CMP [Comprehensive Metabolic Panel] Stat Lab 06/14/25 07:33 Completed CRP [C-Reactive Protein] Stat Lab 06/14/25 07:33 Completed HCG,Quantitative Stat Lab 06/14/25 07:33 Completed Lipase Stat Lab 06/14/25 07:33 Completed UA [Urinalysis and Microscopic] Stat Lab 06/14/25 07:22 Completed Urine Culture Stat Micro 06/14/25 07:22 Received Medical Decision Narrative: In summary, this is a 19-year-old female patient who is currently 12 weeks with a confirmed intrauterine who is presenting to the emergency department today for evaluation of right lower quadrant abdominal pain onset yesterday at around 2:40 PM. Pain has worsened this morning and is not associated with any vaginal discharge/bleeding, urinary symptoms, or gastrointestinal symptoms. Patient's comorbidities include a past medical history of anxiety and depression as well as recurrent vomiting in . On initial evaluation of the patient they were resting comfortably in no acute distress and nontoxic in appearance. They are hemodynamically stable, saturating well room air, and are neurologically intact. On physical examination of the patient her heart and lungs are clear to auscultation bilaterally. She appears well-hydrated. Good capillary refill. Her upper abdomen is nontender to palpation. She has tenderness of the lower abdomen along the suprapubic region and right lower quadrant. She has no rebound tenderness or obvious signs of reinaldo peritonitis. Differential diagnosis includes pelvic pain of , ovarian cyst rupture, appendicitis, urinary tract infection, among others. Workup was initiated with hematologic labs. Will perform a POCUS assessment. Labs were personally turbid by me and demonstrate no evidence of leukocytosis. No actionable anemia. H&H is actually higher than prior. No significant electrolyte derangements or evidence of acute kidney injury. Patient CRP is elevated at 49.9 which can be seen during . The patient does have 2+ blood in her urine as well as some bacteria, no nitrates or leukocyte esterase. It could be possible that she has passed a stone and this is the cause of her right lower quadrant pain, however she has not been experiencing any pain in her flank that would suggest a urinary stone. There is also ketones noted in the urine so we treated the patient for nausea with Reglan and Benadryl and also administered 1 L of D5 with lactated Ringer's. Bedside ultrasound of the uterus was performed and shows a live intrauterine with a heart rate of approximately 150 bpm. During the patient's course in the Emergency Department I performed multiple serial abdominal exams. On the initial exam she had right lower quadrant tenderness. On the first repeat exam she had right lower quadrant tenderness and left lower quadrant tenderness. On my secondary reassessment she now only has left lower quadrant abdominal tenderness and no right lower quadrant abdominal tenderness. Upon my initial evaluation of the patient I did speak with our drywall stripper on-call. He stated that in this clinical scenario he would not rely on labs for screening of appendicitis and would recommend further workup with an MRI. We do not have MRI capabilities here on the weekend so I did attempt to pursue transfer to the [facility]. [facility] is currently at capacity and states that they will not accept this patient for further workup with MRI unless she is in septic shock. They have declined transport at this time. I also spoke with an drywall stripper there at the [facility] and he recommended that we obtain a CT scan of the abdomen and pelvis for workup of appendicitis. After my second serial abdominal exam listed above, I noted that she no longer had right lower quadrant abdominal tenderness and was now only having left lower quadrant abdominal tenderness. I found that this was quite odd and does not fit the typical pattern of appendicitis, which usually presents with focal tenderness and a worsening abdominal exam over time. Therefore I discussed this case again with our drywall stripper on-call and he felt that in light of a changing abdominal exam with resolved right lower quadrant abdominal tenderness that appendicitis would be less likely. He felt that it was reasonable for us to have a shared decision-making discussion with the patient and offer CT scan of the abdomen and pelvis today versus discharge home and strict return precautions in the event that she has worsening right lower quadrant abdominal pain Therefore I had a very long discussion with the patient about our options moving forward. I have offered a CT scan of the abdomen and pelvis with contrast here today to assess for further for lower abdominal pathology including appendicitis. We discussed potential risk and benefits of radiation to the fetus. We also discussed the option of discharging the patient home and having her return to the emergency department if she experiences worsening right lower quadrant abdominal pain, fevers, or development of more focal abdominal symptoms. The patient does not wish to undergo CT scan at this time. She has elected to discharge home and continue to monitor her symptoms in the outpatient setting and return to the emergency department if she has any new or worsening symptoms. Strict return precautions have been given and the patient knowledges understanding. At this time all questions been answered and all parties were agreeable with the decision to discharge home Procedures Miscellaneous Procedure Procedure Performed: Limited OB ultrasound Indication: Abdominal pain Identified structures: Uterus Findings: Uterus: Definitive IUP heart rate: Approximately 150 Impression: IUP: Present heart rate: Approximately 150 Images were sent to permanent archive This study was technically adequate CPT transabdominal: 73030-20 This study was performed by me, and I personally interpreted all images/videos. Based on my clinical judgment these images were [adequate/inadequate] and [did/did not] necessitate further imaging Critical Care Critical Care Time Critical Care Time: No
[2025-06-14 07:49] LABS: Hematocrit 34.2 % (37.0-47.0); Hemoglobin 11.5 g/dL (12.2-16.2); Immature Granulocytes % 0.5 %; Mean Corpuscular HGB Conc 33.6 g/dL (31.8-35.4); Mean Corpuscular Hemoglobin 27.3 pg (27.0-31.2); Mean Corpuscular Volume 81.0 fl (81-99); Nucleated Red Blood Cells % 0 %; Platelet Count 280 K/mm3 (142-424); Red Blood Count 4.22 M/mm3 (4.20-5.40); Red Cell Distribution Width-SD 40.0 fL; White Blood Count 7.6 K/mm3 (4.5-13.0)
[2025-06-14 07:53] LABS: Albumin Level 3.9 g/dl (3.5-5.0); Chloride 98 mmol/L (98-107); Potassium 3.4 mmoL/L (3.5-5.1); Sodium 132 mmol/L (136-145)
[2025-06-14 07:55] LABS: Blood Urea Nitrogen 3 mg/dl (7-17); Creatinine Clearance Estimated 209 mL/min (50-200); Creatinine,Serum 0.40 mg/dl (0.52-1.04); Estimated Glomerular Filt Rate 203 ml/min (>60); GFR (African American) 246 ML/MIN (>60)
[2025-06-14 07:56] LABS: Alanine Aminotransferase 18 U/L (12-78); Albumin/Globulin Ratio 1.1 (1.1-1.8); Alkaline Phosphatase 72 U/L (38-126); Anion Gap 11.4 mEq/L (5-15); Aspartate Amino Transferase 25 U/L (14-36); Bilirubin,Total 0.3 mg/dl (0.2-1.3); Calcium 9.2 mg/dl (8.4-10.2); Carbon Dioxide 26 mmol/L (22.0-30.0); Globulin 3.4 g/dL (1.3-3.2); Glucose 98 mg/dl (74-100); Lipase 56 U/L (23-300); Total Protein,Serum 7.3 g/dl (6.3-8.2)
[2025-06-14 08:10] LABS: Bilirubin,Urine Negative (Negative); Color,Urine YELLOW (Yellow); Glucose,Urine (UA) Negative (Negative); Ketones,Urine 3+ (Negative); Leukocyte Esterase,Urine Negative (Negative); PH,Urine 5.5 (5.0-8.5); Protein,Urine Negative (Negative); Specific Gravity, Urine 1.025 (1.005-1.030); Urobilinogen,Urine 0.2 EU/dl (0.2)
[2025-06-14] MEDS: DEXTROSE 5%-LACTATED RINGERS 1,000 ML 999 ML IV (08:34)
[2025-06-14] MEDS: METOCLOPRAMIDE HCL 10MG/2ML VIAL 10 MG IVP (08:35)
--- NOTE | 2025-06-14 09:19 | PC.NURSE ---
OB doctor senior application security consultant paged for Dr. Baldwin
[2025-06-14 09:22] LABS: C-Reactive Protein 49.9 mg/L (0-4)
--- NOTE | 2025-06-14 09:48 | PC.NURSE ---
calling [facility] @ this time
--- NOTE | 2025-06-14 09:58 | PC.NURSE ---
Dr Baldwin speaking to [facility] @ this time
--- NOTE | 2025-06-14 10:13 | PC.NURSE ---
Dr. Baldwin speaking with Dr. Harrison
[2025-06-14 10:30] LABS: Amorphous Sediment,Urine Trace /lpf; Bacteria,Urine Trace /lpf; RBC,Urine Occasional #/hpf (0-3); Squamous Epithelial Cell,Urine Occasional #/hpf (0-5); WBC,Urine Occasional #/hpf (0-3)
== END 2025-06-14 11:16 | disposition home or self-care (01) ==
PROVIDERS: Emergency Provider Student in an Organized Health Care Education/Training Program; PCP Nurse Practitioner
DX: O26.891 Other specified pregnancy related conditions, first trimester (principal); R10.31 Right lower quadrant pain; E87.1 Hypo-osmolality and hyponatremia; E87.6 Hypokalemia; R11.0 Nausea; Z3A.12 12 weeks gestation of pregnancy
CPT/HCPCS: 80053; 81001; 83690; 84702; 85025; 86140; 87086; 96365; 96375; 99284; 99285; J1200; J2765; J7121

== ENCOUNTER 2025-06-15 07:31 | Emergency (ER) | payer MEDICAID, SELFPAY ==
[2025-06-15] VITALS (9 sets, daily range): BP systolic 106–128; BP diastolic 62–84; PULSE 79–96; RESP 14–18; TEMP 36.7–36.9; O2SAT 97–100; BMI 21.6
--- NOTE | 2025-06-15 07:34 | CT_ITS ---
PROCEDURE INFORMATION: Exam: CT Abdomen And Pelvis With Contrast Exam date and time: 06/15/2025 8:51 AM Age: 19 years old Clinical indication: Patient is . She was consented for CT examination and the use of IV contrast. Abdominal pain; Other: Rlq; Additional info: Rlq abdominal pain TECHNIQUE: Imaging protocol: Computed tomography of the abdomen and pelvis with contrast. Radiation optimization: All CT scans at this facility use at least one of these dose optimization techniques: automated exposure control; mA and/or kV adjustment per patient size (includes targeted exams where dose is matched to clinical indication); or iterative reconstruction. Contrast material: ISOVUE; Contrast volume: 75 ml; Contrast route: IV; COMPARISON: CT ABDOMEN PELVIS W CON 10/20/2021 11:14 AM FINDINGS: Lungs: Visible portions of the lungs are unremarkable. Heart: Unremarkable. No cardiomegaly. No pericardial effusion. Liver: There is focal fatty infiltration along the falciform ligament. Gallbladder and biliary ducts: Status post cholecystectomy. The biliary tree is unremarkable. Pancreas: Normal. No ductal dilation. Spleen: Spleen is unremarkable. Adrenal glands: The adrenal glands are unremarkable. Kidneys and ureters: The kidneys and ureters are unremarkable. Stomach and bowel: The transverse colon is decompressed limiting evaluation of the wall, but the wall of the transverse colon appears grossly thickened, image 1001/12. This could represent colitis, infectious or inflammatory in origin. Appendix: The appendix is normal, series 3 images 71 through 78. Intraperitoneal space: Minimal, simple dependent pelvic free fluid. Vasculature: The vasculature is unremarkable. No abdominal aortic aneurysm. Lymph nodes: No enlarged lymph nodes. Urinary bladder: The urinary bladder is decompressed. Reproductive: There is an intrauterine gestational sac containing a single fetus. There is an anterior placenta, image 1002/48. The uterus is otherwise grossly unremarkable. There is a 23 mm probable corpus luteal cyst of the right ovary. Bones/joints: The visible skeletal structures are unremarkable. Soft tissues: The soft tissues are unremarkable. IMPRESSION: 1. Patient is . She was consented for CT examination and the use of IV contrast. This was verbally confirmed with Kirstin Lux, the cardiac cath lab radiology technologist. 2. No appendicitis. 3. Gross wall thickening of the transverse colon concerning for colitis, likely infectious or inflammatory in origin. 4. Single intrauterine fetus.
--- NOTE | 2025-06-15 07:39 | HMH.EDGENADL ---
Discharge Plan Disposition Patient Disposition: Home, Self-Care Condition: Good Prescriptions Prescriptions: No Action ondansetron HCl 4 mg tablet 4 mg PO Q8H PRN (Reason: nausea and vomiting) Qty: 20 2RF famotidine 20 mg tablet 20 mg PO BID PRN (Reason: reflux) Qty: 60 1RF Classic 28 mg iron- 800 mcg tablet 1 tab PO DAILY Qty: 30 1RF ascorbic acid (vitamin C) 500 mg tablet 500 mg PO DAILY Qty: 90 1RF lamotrigine [Lamictal] 25 mg tablet 25 mg PO DAILY Qty: 42 0RF Rx Instructions: Take 1 tablet daily for 2 weeks and then increase to 2 tablets daily. If you develop a rash or any itching, stop the medication and call the clinic. nitrofurantoin monohyd/m-cryst [Macrobid] 100 mg capsule 100 mg PO Q12H 7 Days Qty: 14 0RF Rx Instructions: must administer with a meal/food nitrofurantoin macrocrystal 100 mg capsule 100 mg PO BID 5 Days Qty: 10 0RF Rx Instructions: must administer with a meal/food Referrals Follow up/Referrals: Jessica Napoles APRN [Primary Care Provider, Family Practice] - See instructions Activity Restrictions/Add. Instructions Additional Instructions/Restrictions: Your CT scan showed colitis. This is most commonly a self-limiting illness that will last between 7 and 14 days. You can expect abdominal cramping, nausea, vomiting, and diarrhea. If you have any new or worsening symptoms or become unable to tolerate oral intake please return for further evaluation. Clinical Impressions Clinical Impression: Colitis, Abdominal pain, right lower quadrant Instructions Patient Instructions: DI for Colitis Print Language Print Language: Bolivian Discharge ED Provider: Fortunato Baldwin General Adult HPI General Chief complaint: Nausea/Vomiting/Diarrhea Stated complaint: Abd pain Time Seen by Provider: 06/15/25 07:36 History of Present Illness HPI narrative: This is a 19-year-old female patient, with past medical history of anxiety and major depressive disorder, who is presenting to the emergency department today for evaluation of abdominal pain. She is now at around the 36 justin of experiencing abdominal pain. She presented to the emergency department yesterday and was asked evaluated by myself. I had a long conversation with both our sterile processing technologist as well as the sterile processing technologist on-call at and we ultimately elected to discharge the patient home with return precautions in the event that she has new or worsening symptoms. She tells me that this morning her right lower quadrant pain is worse and she has developed diarrhea in addition to this pain. She is still not experiencing fevers. She remains denying vaginal bleeding, vaginal discharge, hematuria, dysuria, and urinary frequency. Related Data Previous Rx's ?Medication ?Instructions ?Recorded vits no.126-ferrous fum 1 tab PO DAILY #30 tabs 04/28/25 28 mg iron-folic acid 800 mcg tablet (Classic ) famotidine 20 mg tablet 20 mg PO BID PRN reflux #60 tabs 05/07/25 nitrofurantoin 100 mg PO Q12H 7 days #14 caps 06/01/25 monohydrate/macrocrystals 100 mg capsule (Macrobid) ascorbic acid (vitamin C) 500 mg 500 mg PO DAILY #90 tabs 06/02/25 tablet ondansetron HCl 4 mg tablet 4 mg PO Q8H PRN nausea and 06/02/25 vomiting #20 tabs lamotrigine 25 mg tablet (Lamictal) 25 mg PO DAILY #42 tabs 06/04/25 nitrofurantoin macrocrystal 100 mg 100 mg PO BID 5 days #10 caps 06/14/25 capsule Allergies Allergy/AdvReac Type Severity Reaction Status Date / Time No Known Allergies Allergy Verified 06/03/25 10:25 [facility] Disclaimer: The information contained in this section may have been updated after the patient was seen, as this information can be updated by other users. Medical History Nausea and vomiting during Anxiety disorder affecting , antepartum Positive home test Aphthous ulcer of mouth Akathisia Post-cholecystectomy syndrome GERD (gastroesophageal reflux disease) Oropharyngeal candidiasis Surgical History Hx of cholecystectomy Family History Other No significant family history Social History Smoking Status: Never smoker alcohol intake: never substance use type: denies use current occupational status: employed and student Travel in the last 8 weeks?: None household members: family housing: house marital status: single well-balanced diet: daily or most days Have you lived/traveled outside US in past 30 days?: No Contact w/someone who lives/traveled outside US past 30 days?: No Exposure to someone with infectious disease in past 14 days?: No Do you have a fever (greater than 100.4 F or 38 C)?: No Have you tested positive for COVID-19?: No Exposed to someone with COVID-19 in past 14 days?: No Do you have a sore throat?: No Do you have a cough?: No Do you have any weakness?: No Do you have any diarrhea?: No Are you experiencing any unusual bleeding?: No Do you have any muscle aches/pain?: No Do you have any abdominal pain?: No Are you experiencing loss of taste or smell?: No Other Medical History Have you received the Flu Vaccine for this season: No Have you received the Pneumonia Vaccine: No ROS Obtained: Yes Systems reviewed as appropriate & no additional complaints except as documented Physical Exam General General appearance: other (See MDM) Respiratory Respiratory exam: Present other (See MDM) Cardiovascular Cardiovascular exam: Present other (See MDM) Neurological Exam Neurological exam: Present other (See MDM) Medical Decision Making Medical Records Medical records reviewed: Yes I reviewed the patient's medical records. Screening: Per USPSTF and CDC recommendations, given the prevalence of disease in our region, it is our hospital?s policy to screen for HIV and viral Hepatitis for all patients aged 18 and over and those with ongoing risk factors. Star Inquiry Pt receiving controlled substance: No Star was queried for this patient: No Vital Signs: 06/15/25 07:36 06/15/25 07:37 06/15/25 08:00 Temperature 98.4 F Temperature Source Oral Pulse Rate 94 H 82 Pulse Rate [Radial] 96 H Respiratory Rate 18 Blood Pressure 121/75 Blood Pressure [Right Arm] 121/75 Blood Pressure Mean [Right Arm] 90 Blood Pressure Source [Right Arm] Automatic Cuff Blood Pressure Position [Right Arm] Sitting 02 Sat by Pulse Oximetry 99 100 98 Oxygen Delivery Method Room Air Room Air 06/15/25 08:30 06/15/25 09:30 06/15/25 10:00 Temperature Temperature Source Pulse Rate 86 79 88 Pulse Rate [Radial] Respiratory Rate Blood Pressure 117/66 120/68 128/84 Blood Pressure [Right Arm] Blood Pressure Mean [Right Arm] Blood Pressure Source [Right Arm] Blood Pressure Position [Right Arm] 02 Sat by Pulse Oximetry 97 100 100 Oxygen Delivery Method Room Air Room Air Room Air 06/15/25 10:30 Temperature Temperature Source Pulse Rate 85 Pulse Rate [Radial] Respiratory Rate Blood Pressure 118/62 Blood Pressure [Right Arm] Blood Pressure Mean [Right Arm] Blood Pressure Source [Right Arm] Blood Pressure Position [Right Arm] 02 Sat by Pulse Oximetry 100 Oxygen Delivery Method Room Air Lab Data Lab Results 06/15/25 07:50: WBC 6.8, RBC 3.97 L, Hgb 10.6 L, Hct 32.4 L, MCV 81.6, MCH 26.7 L, MCHC 32.7, RDW 13.9, Plt Count 262, MPV 9.2, Neut % (Auto) 68.8, Lymph % (Auto) 19.5, [place] % (Auto) 8.4, Eos % (Auto) 2.7, Baso % (Auto) 0.3, Neut # (Auto) 4.7, Lymph # (Auto) 1.3, [place] # (Auto) 0.6, Eos # (Auto) 0.2, Baso # (Auto) 0.0, Sodium 133 L, Potassium 3.2 L, Chloride 100, Carbon Dioxide 27, Anion Gap 9.2, BUN 3 L, Creatinine 0.40 L, Estimated Creat Clear 209, Estimated GFR 203, Est GFR ( Amer) 246, Glucose 94, Calcium 9.0, Total Bilirubin < 0.1 L, AST 24, ALT 16, Alkaline Phosphatase 67, C-Reactive Protein 66.7 H D, Total Protein 6.9, Albumin 3.6, Globulin 3.3 H, Albumin/Globulin Ratio 1.1, Lipase 71, Serum HCG, Qual Positive 06/15/25 08:48: Urine Color Yellow, Urine Appearance Clear, Urine pH 6.0, Ur Specific [place] 1.025, Urine Protein Negative, Urine Glucose (UA) Negative, Urine Ketones 1+, Urine Blood 1+ A, Urine Nitrate Negative, Urine Bilirubin Negative, Urine Urobilinogen 0.2, Ur Leukocyte Esterase Trace, Urine RBC None, Urine WBC 3-5, Ur Squamous Epith Cells Occasional, Urine Bacteria Trace 06/15/25 07:50 06/15/25 07:50 Orders (Tests/Meds): ED MEDICATIONS Discontinued Medications Generic Name Dose Route Start Last Admin Trade Name [place] PRN Reason Stop Dose Admin Lactated Ringer's 1,000 mls @ 999 mls/hr 06/15/25 07:34 06/15/25 09:31 Lactated Ringer's 1000 Ml Bag IV 06/15/25 08:34 Infused .Q1H1M ONE Infusion Iopamidol 75 ml 06/15/25 08:59 06/15/25 08:59 Iopamidol-370 (76%);100ml Bottle IV 06/15/25 09:00 75 ml ONCE ONE Administration Ondansetron HCl 4 mg 06/15/25 07:34 06/15/25 07:56 Ondansetron 4mg/2ml Vial IV 06/15/25 07:35 4 mg ONCE ONE Administration Potassium Chloride 60 meq 06/15/25 08:35 06/15/25 09:01 Potassium Chloride 20meq Tab PO 06/15/25 08:36 60 meq ONCE ONE Administration Sodium Chloride 10 ml 06/15/25 08:59 06/15/25 08:59 Sodium Chloride 0.9% 10ml Syr (Rad Only) IV 06/15/25 09:00 10 ml ONCE ONE Administration ORDERS Category Date Time Status CT abdomen pelvis w con Stat Cat Scan 06/15/25 07:34 Completed CBC w/Auto Diff [Complete Blood Count Auto Diff] Stat Lab 06/15/25 07:50 Completed CMP [Comprehensive Metabolic Panel] Stat Lab 06/15/25 07:50 Completed CRP [C-Reactive Protein] Stat Lab 06/15/25 07:50 Completed Diarrhea 23 Panel, PCR Stat Lab 06/15/25 11:05 Ordered HCG Qualitative, Serum Stat Lab 06/15/25 07:50 Completed Lipase Stat Lab 06/15/25 07:50 Completed Urinalysis and Microscopic Stat Lab 06/15/25 08:48 Completed Medical Decision Narrative: In summary this is a 19-year-old female patient who is presenting as a bounce back for right lower quadrant abdominal pain that she was seen here in the emergency department for yesterday. Patient is now at the 36-hour justin of experiencing lower abdominal pain. Yesterday her exam was waxing and waning and there was intermittent intervals where she would have left lower quadrant abdominal pain and right lower quadrant abdominal pain. Today she states that she feels more focality to the pain in the right lower quadrant and she is also experiencing diarrhea. She denies urinary symptoms and vaginal symptoms. No flank pain. On initial evaluation of the patient they were resting comfortably in no acute distress and nontoxic in appearance. They are hemodynamically stable, saturating well room air, and are neurologically intact. On physical examination her heart and lungs are clear to auscultation bilaterally. She is appropriately alert and interactive with a GCS of 15. She has focal right lower quadrant abdominal tenderness on exam as well as left lower quadrant abdominal tenderness on exam. Differential diagnosis includes appendicitis, colitis, gastroenteritis, diverticulitis, cystitis, usual pains of , among others Workup was initiated with hematologic labs. Shared decision-making was used and we decided to ultimately perform a CT scan of the abdomen and pelvis. Labs demonstrated no evidence of leukocytosis, no transfusion for anemia. She has mild hypokalemia with potassium of 3.2 and we have given 60 mEq of potassium chloride. Creatinine is 0.4 suggestive against acute kidney injury. No transaminitis or elevation of bilirubin. CRP is elevated to [address] scan of the abdomen and pelvis was personally turbid by me and demonstrates no evidence of pneumoperitoneum. Official radiology read is in agreement and states that the patient has no evidence of acute appendicitis but they do state that she has gross wall thickening of the transverse colon concerning for colitis which could be infectious or inflammatory in origin. On repeat evaluation of the patient we have requested that she provide a stool sample given that she has developed diarrhea today. She tells me that she is unable to provide us with a stool sample today. I have informed her that this is likely a viral origin and can be in some cases associated with bacterial infections although these are rarely treated with antibiotics. She overall feels reassured by her results today and would like to be discharged home. We will have her return to the emergency department if she has any new or worsening symptoms or becomes unable to tolerate oral intake. At this time all questions have been answered and all parties are agreeable with discharge home. Critical Care Critical Care Time Critical Care Time: No
[2025-06-15] MEDS: ONDANSETRON 4MG/2ML VIAL 4 MG IV (07:56)
[2025-06-15] MEDS: LACTATED RINGERS 1000ML 1,000 ML 999 ML IV (07:56)
[2025-06-15 08:07] LABS: Hematocrit 32.4 % (37.0-47.0); Hemoglobin 10.6 g/dL (12.2-16.2); Immature Granulocytes % 0.3 %; Mean Corpuscular HGB Conc 32.7 g/dL (31.8-35.4); Mean Corpuscular Hemoglobin 26.7 pg (27.0-31.2); Mean Corpuscular Volume 81.6 fl (81-99); Nucleated Red Blood Cells % 0 %; Platelet Count 262 K/mm3 (142-424); Red Blood Count 3.97 M/mm3 (4.20-5.40); Red Cell Distribution Width-SD 41.3 fL; White Blood Count 6.8 K/mm3 (4.5-13.0)
[2025-06-15 08:11] LABS: Albumin Level 3.6 g/dl (3.5-5.0); Chloride 100 mmol/L (98-107); Potassium 3.2 mmoL/L (3.5-5.1); Sodium 133 mmol/L (136-145)
[2025-06-15 08:13] LABS: Blood Urea Nitrogen 3 mg/dl (7-17); Creatinine Clearance Estimated 209 mL/min (50-200); Creatinine,Serum 0.40 mg/dl (0.52-1.04); Estimated Glomerular Filt Rate 203 ml/min (>60); GFR (African American) 246 ML/MIN (>60)
[2025-06-15 08:14] LABS: Alanine Aminotransferase 16 U/L (12-78); Albumin/Globulin Ratio 1.1 (1.1-1.8); Alkaline Phosphatase 67 U/L (38-126); Anion Gap 9.2 mEq/L (5-15); Aspartate Amino Transferase 24 U/L (14-36); Calcium 9.0 mg/dl (8.4-10.2); Carbon Dioxide 27 mmol/L (22.0-30.0); Globulin 3.3 g/dL (1.3-3.2); Glucose 94 mg/dl (74-100); Lipase 71 U/L (23-300); Total Protein,Serum 6.9 g/dl (6.3-8.2)
[2025-06-15 08:29] LABS: Bilirubin,Total < 0.1 mg/dl (0.2-1.3)
[2025-06-15 08:43] LABS: HCG Qualitative, Serum Positive (Negative)
[2025-06-15 08:49] LABS: C-Reactive Protein 66.7 mg/L (0-4)
[2025-06-15 08:53] LABS: Microscopic, Urine URINE MICROSCOPIC (MICROSCOPIC)
--- NOTE | 2025-06-15 08:56 | HMH.ITSTN ---
pt advised by md of risks/benefits of ct and contrast; pt agrees to exam; waiver signed
[2025-06-15] MEDS: SODIUM CHLORIDE 0.9% 10ML SYR (RAD ONLY) 10 ML IV (08:59)
[2025-06-15] MEDS: IOPAMIDOL-370 (76%);100ML BOTTLE 75 ML IV (08:59)
[2025-06-15] MEDS: POTASSIUM CHLORIDE 20MEQ TAB 60 MEQ PO (09:01)
[2025-06-15 10:09] LABS: Bilirubin,Urine Negative (Negative); Color,Urine YELLOW (Yellow); Glucose,Urine (UA) Negative (Negative); Ketones,Urine 1+ (Negative); Leukocyte Esterase,Urine TRACE (Negative); PH,Urine 6.0 (5.0-8.5); Protein,Urine Negative (Negative); Specific Gravity, Urine 1.025 (1.005-1.030); Urobilinogen,Urine 0.2 EU/dl (0.2)
[2025-06-15 10:31] LABS: Bacteria,Urine Trace /lpf; Squamous Epithelial Cell,Urine Occasional #/hpf (0-5)
== END 2025-06-15 11:29 | disposition home or self-care (01) ==
PROVIDERS: Emergency Provider Student in an Organized Health Care Education/Training Program; PCP Nurse Practitioner
DX: O26.891 Other specified pregnancy related conditions, first trimester (principal); R10.31 Right lower quadrant pain; E87.6 Hypokalemia; K52.9 Noninfective gastroenteritis and colitis, unspecified; Z3A.12 12 weeks gestation of pregnancy
CPT/HCPCS: 74177; 80053; 81001; 83690; 84703; 85025; 86140; 96361; 96374; 99285; J2405; J7120; Q9967

== ENCOUNTER 2025-06-18 10:30 | Outpatient (CLI) | payer MEDICAID, SELFPAY ==
[2025-06-18 18:24] LABS: Alanine Aminotransferase 23 U/L (12-78); Albumin Level 3.8 g/dl (3.5-5.0); Albumin/Globulin Ratio 1.3 (1.1-1.8); Alkaline Phosphatase 82 U/L (38-126); Anion Gap 13.1 mEq/L (5-15); Aspartate Amino Transferase 28 U/L (14-36); Bilirubin,Total 0.4 mg/dl (0.2-1.3); Blood Urea Nitrogen 4 mg/dl (7-17); Calcium 8.9 mg/dl (8.4-10.2); Carbon Dioxide 25 mmol/L (22.0-30.0); Chloride 99 mmol/L (98-107); Creatinine,Serum 0.40 mg/dl (0.52-1.04); Estimated Glomerular Filt Rate 203 ml/min (>60); GFR (African American) 246 ML/MIN (>60); Globulin 2.9 g/dL (1.3-3.2); Glucose 61 mg/dl (74-100); Potassium 4.1 mmoL/L (3.5-5.1); Sodium 133 mmol/L (136-145); Total Protein,Serum 6.7 g/dl (6.3-8.2)
== END 2025-06-18 23:59 ==
LOC: LAB.DROPOF 06-20 00:14
PROVIDERS: PCP Family Medicine; Visit Provider Family Medicine
DX: K52.9 Noninfective gastroenteritis and colitis, unspecified (principal)
CPT/HCPCS: 80053

== ENCOUNTER 2025-07-20 22:05 | Emergency (ER) | payer MEDICAID, SELFPAY ==
[2025-07-20 22:26] VITALS: BP 112/68; PULSE 91; RESP 18; TEMP 36.8; O2SAT 100; BMI 22.1
[2025-07-20 22:30] VITALS: BP 105/61; PULSE 79; O2SAT 99
[2025-07-20] MEDS: LACTATED RINGERS 1000ML 1,000 ML 999 ML IV (22:51)
[2025-07-20] MEDS: ONDANSETRON 4MG/2ML VIAL 4 MG IV (22:52)
[2025-07-20] MEDS: ACETAMINOPHEN 1,000MG/100ML VIAL 1000 MG IV (22:52)
[2025-07-20 23:06] LABS: Hematocrit 31.6 % (37.0-47.0); Hemoglobin 10.6 g/dL (12.2-16.2); Immature Granulocytes % 0.3 %; Mean Corpuscular HGB Conc 33.5 g/dL (31.8-35.4); Mean Corpuscular Hemoglobin 26.9 pg (27.0-31.2); Mean Corpuscular Volume 80.2 fl (81-99); Nucleated Red Blood Cells % 0 %; Platelet Count 269 K/mm3 (142-424); Red Blood Count 3.94 M/mm3 (4.20-5.40); Red Cell Distribution Width-SD 40.9 fL; White Blood Count 11.6 K/mm3 (4.8-10.8)
--- OUTSIDE RECORDS SUMMARY | 2025-07-20 23:08 | XMS_ITS ---
Author Organization Unknown ENCOUNTERS Encounter Performer Location Date Diagnosis Diagnosis Status Emergency [facility] [address] [place] [facility] [address] [place] [address] [id number] Pre Admit [facility] [address] [facility] [address] [place] [address] [id number] Emergency [facility] [address] [facility] [address] [place] [address] [id number] ROGE Pre Admit [facility] [address] [place] [address] [id number] Pre Admit [facility] [address] [place] [address] [id number] Emergency [facility] [address] [facility] [address] [place] [address] [id number] ROGE Emergency [facility] [address] [place] [address] [id number] ROGE Pre Admit [facility] [address] [place] [address] [id number] Pre Admit [facility] [address] [place] [address] [id number] Emergency [facility] [address] [place] [address] [id number] ROGE Emergency [facility] [address] [place] [address] [id number] ROGE Pre Admit [facility] [address] [place] [address] [id number] Pre Admit [facility] [address] [place] [address] [id number] Emergency [facility] [address] [place] [address] [id number] ROGE Emergency [facility] [address] [facility] [address] [place] [address] [id number] ROGE Pre Admit [facility] [address] [facility] [address] [place] [address] [id number] Outpatient [facility] [address] [facility] [address] [place] [address] [id number] ROGE Inpatient [facility] [address] [facility] [address] [place] [address] [id number] Emergency [facility] [address] [facility] [address] [place] [address] [id number] Emergency [facility] [address] [facility] [address] [place] [address] [id number] ROGE Emergency [facility] [address] [facility] [address] [place] [address] [id number] ROGE *Note: Encounters from your own facility or health system may be excluded. Allergies, Adverse Reactions, Alerts Allergen Type Severity Identification Date Medications Name Date Quantity Days Supplied GPI Number
[2025-07-20 23:11] LABS: Albumin Level 4.5 g/dl (3.5-5.0); Chloride 101 mmol/L (98-107); Potassium 3.4 mmoL/L (3.5-5.1); Sodium 133 mmol/L (136-145)
[2025-07-20 23:14] LABS: Alanine Aminotransferase 16 U/L (12-78); Albumin/Globulin Ratio 1.7 (1.1-1.8); Alkaline Phosphatase 60 U/L (38-126); Anion Gap 10.4 mEq/L (5-15); Aspartate Amino Transferase 27 U/L (14-36); Bilirubin,Total 0.6 mg/dl (0.2-1.3); Blood Urea Nitrogen 4 mg/dl (7-17); Carbon Dioxide 25 mmol/L (22.0-30.0); Creatinine Clearance Estimated 212 mL/min (50-200); Creatinine,Serum 0.40 mg/dl (0.52-1.04); Estimated Glomerular Filt Rate 201 ml/min (>60); GFR (African American) 244 ML/MIN (>60); Globulin 2.7 g/dL (1.3-3.2); Lipase 77 U/L (23-300); Total Protein,Serum 7.2 g/dl (6.3-8.2)
[2025-07-20 23:15] LABS: Calcium 8.7 mg/dl (8.4-10.2); Glucose 92 mg/dl (74-100)
--- NOTE | 2025-07-20 23:26 | [facility].EDGENADL ---
Discharge Plan Disposition Patient Disposition: Home, Self-Care Prescriptions Prescriptions: No Action ondansetron HCl 4 mg tablet 4 mg PO Q8H PRN (Reason: nausea and vomiting) Qty: 20 2RF Classic 28 mg iron- 800 mcg tablet 1 tab PO DAILY Qty: 30 1RF ascorbic acid (vitamin C) 500 mg tablet 500 mg PO DAILY Qty: 90 1RF famotidine 20 mg tablet 20 mg PO BID PRN (Reason: reflux) Qty: 60 1RF lamotrigine [Lamictal] 25 mg tablet 25 mg PO DAILY Qty: 42 0RF Rx Instructions: Take 1 tablet daily for 2 weeks and then increase to 2 tablets daily. If you develop a rash or any itching, stop the medication and call the clinic. Referrals Follow up/Referrals: En Phillip MD [Primary Care Provider, Family Practice] - See instructions Activity Restrictions/Add. Instructions Additional Instructions/Restrictions: Please follow-up with your [facility]LEBR[facility] MANAGER. Please return to the emergency department if you develop any new or worsening symptoms or become concerned for your health. Clinical Impressions Clinical Impression: Nausea, vomiting, and diarrhea, Pelvic cramping Instructions Patient Instructions: DI for Acute Abdominal Pain Print Language Print Language: Cameroonian Discharge ED Provider: Js Noel General Adult HPI <Iliana Corea DO - Last Filed: 07/20/25 23:30> General Chief complaint: Abdominal Pain Stated complaint: 17 weeks AP / nausea, vomiting, dizziness Time Seen by Provider: 07/20/25 22:42 Mode of Arrival: Wheelchair Source of Information: Patient Description of Symptoms (Recalled from ER Triage Doc. by RN): Pt states she randomly started having intense abdominal pain around 1800. Pt is 17 weeks . PT has had N/V/D since 1800. Pt saw her OBGYN last on monday and everything checked out with baby, History of Present Illness HPI narrative: This patient is a 20 G1, P0 at 17 weeks gestation with history of prior cholecystectomy presenting to the Emergency Department for evaluation of concern for nausea, vomiting, diarrhea, and lower abdominal pain that started around 6:00 PM today. She states that she saw her CELEBRITY MANAGER last Monday and everything was good, but today she started acutely feeling sick. She notes she experiences a really intense cramp in her lower abdomen, and either she will have diarrhea or vomit after that. Emesis is nonbloody nonbilious, diarrhea is nonbloody. She denies any fevers, dysuria, urinary frequency, abnormal vaginal bleeding or leakage of fluid. Related Data Previous Rx's ?Medication ?Instructions ?Recorded vits no.126-ferrous fum 1 tab PO DAILY #30 tabs 04/28/25 28 mg iron-folic acid 800 mcg tablet (Classic ) ascorbic acid (vitamin C) 500 mg 500 mg PO DAILY #90 tabs 06/02/25 tablet ondansetron HCl 4 mg tablet 4 mg PO Q8H PRN nausea and 06/02/25 vomiting #20 tabs famotidine 20 mg tablet 20 mg PO BID PRN reflux #60 tabs 07/02/25 lamotrigine 25 mg tablet (Lamictal) 25 mg PO DAILY #42 tabs 07/10/25 Allergies Allergy/AdvReac Type Severity Reaction Status Date / Time No Known Allergies Allergy Verified 07/17/25 11:17 [facility] <Iliana Corea DO - Last Filed: 07/20/25 23:30> [facility] Disclaimer: The information contained in this section may have been updated after the patient was seen, as this information can be updated by other users. Medical History Vulvar itching Vaginitis Nausea and vomiting during Anxiety disorder affecting , antepartum Positive home test Aphthous ulcer of mouth Akathisia Post-cholecystectomy syndrome GERD (gastroesophageal reflux disease) Oropharyngeal candidiasis Surgical History Hx of cholecystectomy Family History Other No significant family history Social History Smoking Status: Never smoker alcohol intake: never substance use type: denies use current occupational status: employed and student Travel in the last 8 weeks?: None household members: family housing: house marital status: single well-balanced diet: daily or most days Have you lived/traveled outside US in past 30 days?: No Contact w/someone who lives/traveled outside US past 30 days?: No Exposure to someone with infectious disease in past 14 days?: No Do you have a fever (greater than 100.4 F or 38 C)?: No Have you tested positive for COVID-19?: No Exposed to someone with COVID-19 in past 14 days?: No Do you have a sore throat?: No Do you have a cough?: No Do you have any weakness?: Yes Do you have any diarrhea?: No Are you experiencing any unusual bleeding?: No Do you have any muscle aches/pain?: No Do you have any abdominal pain?: No Are you experiencing loss of taste or smell?: No Other Medical History Have you received the Flu Vaccine for this season: No Have you received the Pneumonia Vaccine: No <Iliana Corea DO - Last Filed: 07/20/25 23:30> ROS Obtained: Yes All systems reviewed & no additional complaints except as documented Physical Exam <Iliana Corea DO - Last Filed: 07/20/25 23:30> General General appearance: alert and in no apparent distress Head Head exam: atraumatic and normocephalic Eye Eye exam: Present normal appearance, PERRL and EOMI ENT ENT exam: Present normal exam, normal oropharynx, mucous membranes moist and normal external ear exam Neck Neck exam: Present normal inspection, full ROM and trachea midline; Absent tenderness Chest Chest inspection: Present normal inspection and symmetric chest wall rise; Absent tenderness Respiratory Respiratory exam: Present normal lung sounds bilaterally; Absent respiratory distress, wheezes, stridor or accessory muscle use Cardiovascular Cardiovascular exam: Present regular rate and normal rhythm Abdominal Exam Abdominal exam: Present soft and tenderness (Mild suprapubic to deep palpation, no rebound, guarding, or rigidity); Absent distention or guarding Extremities Exam Extremities exam: Present normal inspection, full ROM and normal capillary refill; Absent tenderness or edema Back Exam Back exam: Present normal inspection and full ROM; Absent tenderness Neurological Exam Neurological exam: Present alert, oriented X3, CN II-XII intact and normal gait; Absent motor sensory deficit Psychiatric Psychiatric exam: Present normal affect and normal mood Skin Skin exam: Present warm and dry Medical Decision Making <Iliana Corea DO - Last Filed: 07/20/25 23:30> Medical Records Medical records reviewed: Yes I reviewed the patient's medical records. Screening: Per USPSTF and CDC recommendations, given the prevalence of disease in our region, it is our hospital?s policy to screen for HIV and viral Hepatitis for all patients aged 18 and over and those with ongoing risk factors. Star Inquiry Pt receiving controlled substance: No Vital Signs: 07/20/25 22:26 07/20/25 22:30 07/20/25 23:30 Temperature 98.3 F Temperature Source Oral Pulse Rate 79 77 Pulse Rate [Right] 91 H Respiratory Rate 18 Blood Pressure 105/61 L 100/61 L Blood Pressure [Right Arm] 112/68 Blood Pressure Mean [Right Arm] 82 Blood Pressure Source [Right Arm] Automatic Cuff Blood Pressure Position [Right Arm] Sitting 02 Sat by Pulse Oximetry 100 99 96 Oxygen Delivery Method Room Air 07/20/25 23:40 07/21/25 00:10 Temperature Temperature Source Pulse Rate 77 75 Pulse Rate [Right] Respiratory Rate Blood Pressure 111/59 L 114/69 Blood Pressure [Right Arm] Blood Pressure Mean [Right Arm] Blood Pressure Source [Right Arm] Blood Pressure Position [Right Arm] 02 Sat by Pulse Oximetry 100 100 Oxygen Delivery Method Lab Data Lab results reviewed: Yes I reviewed the patient's lab results. Lab Results 07/20/25 00:01: Urine Color Yellow, Urine Appearance Clear, Urine pH 6.0, Ur Specific [place] 1.010, Urine Protein Negative, Urine Glucose (UA) Negative, Urine Ketones 2+, Urine Blood Trace-i, Urine Nitrate Negative, Urine Bilirubin Negative, Urine Urobilinogen 0.2, Ur Leukocyte Esterase Trace, Urine RBC 5-10, Urine WBC 3-5, Ur Squamous Epith Cells 5-10, Urine Bacteria 1+ 07/20/25 21:58: WBC 11.6 H, RBC 3.94 L, Hgb 10.6 L, Hct 31.6 L, MCV 80.2 L, MCH 26.9 L, MCHC 33.5, RDW 14.0, Plt Count 269, MPV 9.4, Neut % (Auto) 83.5 H, Lymph % (Auto) 11.1, Stanton % (Auto) 3.3, Eos % (Auto) 1.6, Baso % (Auto) 0.2, Neut # (Auto) 9.7 H, Lymph # (Auto) 1.3, Stanton # (Auto) 0.4, Eos # (Auto) 0.2, Baso # (Auto) 0.0, Sodium 133 L, Potassium 3.4 L, Chloride 101, Carbon Dioxide 25, Anion Gap 10.4, BUN 4 L, Creatinine 0.40 L, Estimated Creat Clear 212, Estimated GFR 201, Est GFR ( Amer) 244, Glucose 92, Calcium 8.7, Total Bilirubin 0.6, AST 27, ALT 16, Alkaline Phosphatase 60, Total Protein 7.2, Albumin 4.5, Globulin 2.7, Albumin/Globulin Ratio 1.7, Lipase 77 07/20/25 21:58 07/20/25 21:58 Orders (Tests/Meds): ED MEDICATIONS Discontinued Medications Generic Name Dose Route Start Last Admin Trade Name Freq PRN Reason Stop Dose Admin Acetaminophen 1,000 mg 07/20/25 22:43 07/20/25 22:52 Acetaminophen 1,000mg/100ml Vial IV 07/20/25 22:44 1,000 mg ONCE ONE Administration Lactated Ringer's 1,000 mls @ 999 mls/hr 07/20/25 22:42 07/20/25 23:53 Lactated Ringer's 1000 Ml Bag IV 07/20/25 23:42 Infused .Q1H1M ONE Infusion Ondansetron HCl 4 mg 07/20/25 22:42 07/20/25 22:52 Ondansetron 4mg/2ml Vial IV 07/20/25 22:43 4 mg ONCE ONE Administration ORDERS Category Date Time Status POCUS Point of Care (ER Only) Stat Exams 07/20/25 22:46 Completed Complete Blood Count Auto Diff Stat Lab 07/20/25 21:58 Completed Comprehensive Metabolic Panel Stat Lab 07/20/25 21:58 Completed Lipase Stat Lab 07/20/25 21:58 Completed UA [Urinalysis and Microscopic] Stat Lab 07/20/25 00:01 Completed Medical Decision Narrative: In summary, this patient is a 20-year-old female presenting to the Emergency Department for evaluation of lower abdominal cramping, nausea, vomiting, and diarrhea. Differential diagnoses considered include but are not limited to viral gastroenteritis, bacterial gastroenteritis, colitis, cystitis. Ruling out the most morbid conditions drove assessment. I reviewed patient's past medical records and noted prior evaluations by gynecology for with most recent one 07/17 which was reassuring. On exam, the patient is lying in bed in no distress with minimal suprapubic tenderness to deep palpation. She has no rebound, guarding, or rigidity. I feel she likely has cramping, nausea, vomiting, and diarrhea related to acute gastroenteritis. Workup included CBC, CMP, lipase, urinalysis. Patient was given a bolus of IV fluids as well as IV acetaminophen and Zofran for symptomatic improvement. Patient care was signed out to the oncoming provider, Dr. Noel, pending labs and reassessment <Js Noel MD - Last Filed: 07/21/25 01:10> Vital Signs: 07/20/25 22:26 07/20/25 22:30 07/20/25 23:30 Temperature 98.3 F Temperature Source Oral Pulse Rate 79 77 Pulse Rate [Right] 91 H Respiratory Rate 18 Blood Pressure 105/61 L 100/61 L Blood Pressure [Right Arm] 112/68 Blood Pressure Mean [Right Arm] 82 Blood Pressure Source [Right Arm] Automatic Cuff Blood Pressure Position [Right Arm] Sitting 02 Sat by Pulse Oximetry 100 99 96 Oxygen Delivery Method Room Air 07/20/25 23:40 07/21/25 00:10 Temperature Temperature Source Pulse Rate 77 75 Pulse Rate [Right] Respiratory Rate Blood Pressure 111/59 L 114/69 Blood Pressure [Right Arm] Blood Pressure Mean [Right Arm] Blood Pressure Source [Right Arm] Blood Pressure Position [Right Arm] 02 Sat by Pulse Oximetry 100 100 Oxygen Delivery Method Lab Data Lab Results 07/20/25 00:01: Urine Color Yellow, Urine Appearance Clear, Urine pH 6.0, Ur Specific [place] 1.010, Urine Protein Negative, Urine Glucose (UA) Negative, Urine Ketones 2+, Urine Blood Trace-i, Urine Nitrate Negative, Urine Bilirubin Negative, Urine Urobilinogen 0.2, Ur Leukocyte Esterase Trace, Urine RBC 5-10, Urine WBC 3-5, Ur Squamous Epith Cells 5-10, Urine Bacteria 1+ 07/20/25 21:58: WBC 11.6 H, RBC 3.94 L, Hgb 10.6 L, Hct 31.6 L, MCV 80.2 L, MCH 26.9 L, MCHC 33.5, RDW 14.0, Plt Count 269, MPV 9.4, Neut % (Auto) 83.5 H, Lymph % (Auto) 11.1, Stanton % (Auto) 3.3, Eos % (Auto) 1.6, Baso % (Auto) 0.2, Neut # (Auto) 9.7 H, Lymph # (Auto) 1.3, Stanton # (Auto) 0.4, Eos # (Auto) 0.2, Baso # (Auto) 0.0, Sodium 133 L, Potassium 3.4 L, Chloride 101, Carbon Dioxide 25, Anion Gap 10.4, BUN 4 L, Creatinine 0.40 L, Estimated Creat Clear 212, Estimated GFR 201, Est GFR ( Amer) 244, Glucose 92, Calcium 8.7, Total Bilirubin 0.6, AST 27, ALT 16, Alkaline Phosphatase 60, Total Protein 7.2, Albumin 4.5, Globulin 2.7, Albumin/Globulin Ratio 1.7, Lipase 77 Orders (Tests/Meds): ED MEDICATIONS Discontinued Medications Generic Name Dose Route Start Last Admin Trade Name Freq PRN Reason Stop Dose Admin Acetaminophen 1,000 mg 07/20/25 22:43 07/20/25 22:52 Acetaminophen 1,000mg/100ml Vial IV 07/20/25 22:44 1,000 mg ONCE ONE Administration Lactated Ringer's 1,000 mls @ 999 mls/hr 07/20/25 22:42 07/20/25 23:53 Lactated Ringer's 1000 Ml Bag IV 07/20/25 23:42 Infused .Q1H1M ONE Infusion Ondansetron HCl 4 mg 07/20/25 22:42 07/20/25 22:52 Ondansetron 4mg/2ml Vial IV 07/20/25 22:43 4 mg ONCE ONE Administration ORDERS Category Date Time Status POCUS Point of Care (ER Only) Stat Exams 07/20/25 22:46 Completed Complete Blood Count Auto Diff Stat Lab 07/20/25 21:58 Completed Comprehensive Metabolic Panel Stat Lab 07/20/25 21:58 Completed Lipase Stat Lab 07/20/25 21:58 Completed UA [Urinalysis and Microscopic] Stat Lab 07/20/25 00:01 Completed Medical Decision Narrative: In summary, this patient is a 20-year-old female presenting to the Emergency Department for evaluation of lower abdominal cramping, nausea, vomiting, and diarrhea. Differential diagnoses considered include but are not limited to viral gastroenteritis, bacterial gastroenteritis, colitis, cystitis. Ruling out the most morbid conditions drove assessment. I reviewed patient's past medical records and noted prior evaluations by gynecology for with most recent one 07/17 which was reassuring. On exam, the patient is lying in bed in no distress with minimal suprapubic tenderness to deep palpation. She has no rebound, guarding, or rigidity. I feel she likely has cramping, nausea, vomiting, and diarrhea related to acute gastroenteritis. Workup included CBC, CMP, lipase, urinalysis. Patient was given a bolus of IV fluids as well as IV acetaminophen and Zofran for symptomatic improvement. Patient care was signed out to the oncoming provider, Dr. Noel, pending labs and reassessment. On reassessment patient reports symptomatic improvement. Laboratories results were independently interpreted by me and significant for normal renal function, no significant electrolyte derangement negative lipase. Urinalysis has squamous cells and suggest not a great catch. Patient does not have any urinary symptoms to suggest UTI. Given this we will not treat empirically as UTI. Minimal leukocytosis noted on CBC. Bedside ultrasound was performed and heart rate was 122. Patient's presentation is most consistent with gastroenteritis. Patient was discharged in stable condition. She has Zofran at home for nausea vomiting. Return precautions given. Procedures <Js Noel MD - Last Filed: 07/21/25 01:10> Limited Ultrasound Indication:: Limited OB ultrasound Indication: Abdominal pain Identified structures: Uterus Findings: Uterus: Definitive IUP FHR: 120 Right adnexa: Unremarkable Left adnexa: Unremarkable Cul de sac: Abscess Impression: IUP with heart rate 122 Images were saved to permanent archive The study was technically adequate CPT Transabdominal: 11188-95 This study was performed by me, Dr. Noel, and I personally interpreted all images/videos. Critical Care <Iliana Corea DO - Last Filed: 07/20/25 23:30> Critical Care Time Critical Care Time: No
[2025-07-20 23:30] VITALS: BP 100/61; PULSE 77; O2SAT 96
[2025-07-20 23:40] VITALS: BP 111/59; PULSE 77; O2SAT 100
[2025-07-21 00:10] VITALS: BP 114/69; PULSE 75; O2SAT 100
[2025-07-21 00:12] LABS: Microscopic, Urine URINE MICROSCOPIC (MICROSCOPIC)
[2025-07-21 00:30] LABS: Bilirubin,Urine Negative (Negative); Color,Urine YELLOW (Yellow); Glucose,Urine (UA) Negative (Negative); Ketones,Urine 2+ (Negative); Leukocyte Esterase,Urine TRACE (Negative); PH,Urine 6.0 (5.0-8.5); Protein,Urine Negative (Negative); Specific Gravity, Urine 1.010 (1.005-1.030); Urobilinogen,Urine 0.2 EU/dl (0.2)
[2025-07-21 00:55] LABS: Bacteria,Urine 1+ /lpf
[2025-07-21 01:06] VITALS: BP 100/61; PULSE 82; RESP 18; TEMP 37; O2SAT 100
== END 2025-07-21 01:10 | disposition home or self-care (01) ==
PROVIDERS: Emergency Medicine; Emergency Provider Emergency Medicine; PCP Family Medicine
DX: O26.892 Other specified pregnancy related conditions, second trimester (principal); R10.24 Suprapubic pain; M62.838 Other muscle spasm; R11.2 Nausea with vomiting, unspecified; R19.7 Diarrhea, unspecified; Z3A.17 17 weeks gestation of pregnancy
CPT/HCPCS: 80053; 81001; 83690; 85025; 96361; 96374; 96375; 99284; 99285; J0131; J2405; J7120

== ENCOUNTER 2025-08-11 09:55 | Outpatient (CLI) | payer MEDICAID, SELFPAY ==
--- NOTE | 2025-08-11 10:30 | US_ITS ---
PROCEDURE: US OB /MATERNAL DETAIL CLINICAL INDICATION: 20 week anatomy COMPARISON: No exams were available for comparison FINDINGS: Transabdominal sonographic images of the pelvis were obtained. From her established due date she is 20 weeks 1 day. Single viable intrauterine gestation. Breech position. Placenta: Anterior placenta grade 1. There is a thickening of the anterior uterine wall retroplacental. There is an average amount of fluid. The cervix appears satisfactory. Closed and measuring 3.04 cm in length. Complete survey performed and was unremarkable on the submitted images as in PACS. No discrete anomalies identified on survey imaging by technologist. Active fetus. Three-vessel cord with satisfactory umbilical cord insertion. 4- chamber heart noted. Situs, aortic arch, LVOT, RVOT, three-vessel view appear normal. Survey of brain & ventricles Unremarkable. Cerebellum, thalamus, choroid plexus, cisterna magna appear normal. Face and neck survey unremarkable. Profile, nasion, lips and nose appeared normal. Diaphragm and chest views unremarkable. Abdomen: Both kidneys noted and unremarkable. Stomach and bladder noted and satisfactory. There is a 1.1 cm anechoic area adjacent to the cord insertion. There is no flow to this area. Spine: Survey of the spine satisfactory with no anomalies identified nor imaged. Cervical, thoracic, lower spine appear normal. Both arms and legs noted. Amniotic Fluid: Adequate. MVP 3.68 cm Measurements: Average ultrasound age 20weeks 1day. Estimated due date by ultrasound age 0412/28/2025. Estimated weight 328g BPD = 20weeks 1day HC = 20weeks 2days AC = 20weeks 4days FL = 19weeks 4days Growth Percentile= 38 Heart Rate = 149bpm Cerebellum = 20weeks 0 days Humerus = 20weeks 2days HC/AC is 1.16 FL/BPD is 0.66 FL/AC is 0.2 IMPRESSION: 1. Viable fetus in the breech presentation with an anterior placenta grade 1. 2. Retroplacental to the placenta, it appears thickened. Suggest follow-up in 4 weeks. 3. The fluid is within normal limits with an MVP 3.68 cm. 4. There is an intra-abdominal hypoechoic area adjacent to the cord insertion that measures approximately 1.1 cm in size. There is no flow to this area. Suggest follow-up in 4 weeks to relook at this area as well. A secondary consideration would be a maternal medicine consult. 5. The rest of the anatomical scan appears normal. 6. biometry is consistent with the dates. Dictated by: Jose Harrison MD 08/11/2025 16:44 Jose Harrison MD in [place] 08/11/2025 16:44
== END 2025-08-11 23:59 | disposition home or self-care (01) ==
LOC: RAD 09:56
PROVIDERS: PCP Family Medicine; Visit Provider Obstetrics & Gynecology
DX: O28.3 Abnormal ultrasonic finding on antenatal screening of mother (principal); O32.1XX0 Maternal care for breech presentation, not applicable or unspecified; O99.342 Other mental disorders complicating pregnancy, second trimester; O99.891 Other specified diseases and conditions complicating pregnancy; F41.9 Anxiety disorder, unspecified; R10.31 Right lower quadrant pain; Z3A.20 20 weeks gestation of pregnancy
CPT/HCPCS: 76811

== ENCOUNTER 2025-09-08 09:55 | Outpatient (CLI) | payer MEDICAID, SELFPAY ==
--- NOTE | 2025-09-08 10:00 | US_ITS ---
PROCEDURE: US OB FOLLOW UP CLINICAL INDICATION: 4 week follow up on cystic structure COMPARISON: US US OB /MATERNAL DETAIL from 08/11/2025 FINDINGS: Transabdominal sonographic images of the pelvis were obtained. The following parameters are obtained: From her established due date she is 24weeks 1day Viable fetus in the cephalic presentation with an anterior placenta grade 1. The cervix measures 3.31 cm transabdominally heart rate: 156bpm bpm. Amniotic fluid: Subjectively appears normal No obvious anomalies evident. profile seen, stomach, bladder, kidneys, three-vessel cord, four chamber heart appear normal. The cystic area adjacent to the cord insertion seen on the previous exam seems smaller measuring 0.8 cm x 0.5 cm x 0.5 cm IMPRESSION: 1. Viable fetus in the cephalic presentation with an anterior placenta grade 1. 2. Subjectively the fluid appears to be within normal limits. 3. The previously described cystic area adjacent to the cord has diminished in size in today measures 0.8 cm in size. Suggest a repeat scan in 4 weeks to follow its resolution. 4. Limited anatomical scan appears normal. Dictated by: Jose Harrison MD 09/09/2025 09:57 Jose Harrison MD in [facility] 09/09/2025 09:57
== END 2025-09-08 23:59 | disposition home or self-care (01) ==
LOC: RAD 09:56
PROVIDERS: PCP Family Medicine; Visit Provider Obstetrics & Gynecology
DX: O99.891 Other specified diseases and conditions complicating pregnancy (principal); R10.20 Pelvic and perineal pain unspecified side; O99.342 Other mental disorders complicating pregnancy, second trimester; F41.9 Anxiety disorder, unspecified; Z3A.24 24 weeks gestation of pregnancy
CPT/HCPCS: 76816